=== PATIENT | male | born 1975 ===

== ENCOUNTER 2022-07-10 08:11 | Outpatient (REF) | payer OTHER, SELFPAY ==
--- NOTE | ~2022-07-10 | XR_ITS ---
EXAMINATION: XR foot LT 2V CLINICAL INFORMATION: Reason for Exam M72.2 - Plantar fascial fibromatosis COMPARISON: None. TECHNIQUE: AP, lateral, and oblique views of the left foot XR/XR foot LT 2V FINDINGS/IMPRESSION: * No acute fracture or dislocation. * Joint spaces are maintained without significant degenerative change. * Calcaneal enthesopathy.
[2022-07-10 09:23] LABS: Hematocrit 46.8 % (42.0-52.0); Hemoglobin 15.6 g/dl (14.0-18.0); Mean Corpuscular HGB Conc 33.3 g/dl (31.0-36.0); Mean Corpuscular Hemoglobin 28.2 pg (27.0-33.0); Mean Corpuscular Volume 84.6 fL (80.0-98.0); Mean Platelet Volume 10.1 fL (9.4-12.4); Platelet Count 272 X10*3/uL (160-400); Red Blood Count 5.53 X10*6/uL (4.60-5.80); Red Cell Distribution Width 13.3 % (11.0-16.0); White Blood Count 8.2 X10*3/uL (4.8-10.8)
[2022-07-10 10:00] LABS: Alanine Aminotransferase 31 U/L (0-40); Albumin Level 4.3 g/dL (3.5-5.0); Alkaline Phosphatase 103 U/L (39-117); Anion Gap 15 (12-20); Aspartate Amino Transferase 22 U/L (5-37); Bilirubin Total 0.7 mg/dL (0.0-1.0); Blood Urea Nitrogen 17 mg/dL (9-16); Calcium 9.5 mg/dL (8.4-10.2); Carbon Dioxide 26 mmol/L (22-29); Chloride 103 mmol/L (96-108); Cholesterol 182 mg/dL; Estimated Glomerular Filt Rate > 60; Glucose Fasting 101 mg/dL (60-99); HDL Cholesterol 45 mg/dL; LDL Cholesterol Calculated 97 mg/dl; Potassium 4.8 mmol/L (3.3-5.1); Sodium 139 mmol/L (135-145); Total Protein 7.5 g/dL (6.5-8.0); Triglycerides 204 mg/dL
[2022-07-10 10:09] LABS: TSH reflex Free T4 1.13 uIU/mL (0.32-4.0)
== END 2022-07-10 08:12 | disposition home or self-care (01) ==
LOC: HO.XRAY 08:11
PROVIDERS: PCP Physician Assistant; Visit Provider Physician Assistant
DX: Z13.29 Encounter for screening for other suspected endocrine disorder (principal); Z13.220 Encounter for screening for lipoid disorders; M72.2 Plantar fascial fibromatosis
CPT/HCPCS: 36415; 73620; 80053; 80061; 84443; 85027

== ENCOUNTER 2022-08-17 21:26 | Emergency (ER) | payer OTHER, SELFPAY ==
--- NOTE | ~2022-08-17 | XR_ITS ---
EXAMINATION: XR ANKLE, RIGHT. XR FOOT, RIGHT. CLINICAL INFORMATION: Injury, swelling COMPARISON: None TECHNIQUE: 3 views of the right ankle. 3 views of the right foot. FINDINGS: There is a chronic ossification at the tip of the medial malleolus. The ankle mortise is preserved. There is no acute fracture or dislocation. No radiopaque foreign body. XR/XR ankle RT 2V IMPRESSION: No acute fracture or dislocation of the right ankle or foot.
--- NOTE | ~2022-08-17 | XR_ITS ---
EXAMINATION: XR ANKLE, RIGHT. XR FOOT, RIGHT. CLINICAL INFORMATION: Injury, swelling COMPARISON: None TECHNIQUE: 3 views of the right ankle. 3 views of the right foot. FINDINGS: There is a chronic ossification at the tip of the medial malleolus. The ankle mortise is preserved. There is no acute fracture or dislocation. No radiopaque foreign body. XR/XR foot RT 2V IMPRESSION: No acute fracture or dislocation of the right ankle or foot.
[2022-08-17 21:33] VITALS: BP 145/88; PULSE 82; RESP 16; TEMP 36.5; O2SAT 96; BMI 23.3
--- NOTE | 2022-08-17 22:54 | ED_ITS ---
HPI - Extremity Injury (Lower) General Chief Complaint: Extremity Injury, Lower Stated Complaint: right foot pain Time Seen by Provider: 08/17/22 22:18 Source: patient Mode of arrival: ambulatory Limitations: no limitations History of Present Illness HPI Narrative: This is a 47-year-old male presenting to the emergency department complaints of right great toe pain and right foot pain status post injury while at a trampoline park. Patient tells me he went to go kick a ball and instead of taking the ball he kicked the ground. Since then he has been experiencing pain and swelling to the dorsal aspect of foot, he reports pain is worse to the right great toe. Patient tells me pain is worse with movement and ambulation better at rest. Patient rates the pain at 9.9/10. Tells me injury happened at around 07:30 at night. Patient denies numbness and tingling. No previous injuries to the right foot. This injury did not involve a fall with head strike, patient not reporting headache, vision changes, dizziness, patient not on blood thinners. GCS of 15 on arrival. NIH stroke scale 0. Related Data Previous Rx's Medication Instructions Recorded ibuprofen 800 mg tablet 800 mg PO Q8H PRN pain 15 days #45 07/09/22 tabs prednisone 20 mg tablet 20 mg PO DAILY 7 days #7 tabs 07/09/22 Allergies Allergy/AdvReac Type Severity Reaction Status Date / Time No Known Allergies Allergy Verified 08/17/22 21:33 Review of Systems Review of Systems: Constitutional : No Weight loss, No Fever, No Chills, No Fatigue, No Malaise ENT/Mouth : No sore throat, No Rhinorrhea Eyes: No Eye Pain, No Swelling, No Redness Cardiovascular : No Chest Pain, No SOB, No Dyspnea on Exertion, No Orthopnea, No Edema, No Palpitations Respiratory : No Cough, No Sputum, No Wheezing Gastrointestinal : No Nausea, No Vomiting, No Diarrhea, No Constipation, No abdominal Pain, No Hematochezia, No Melena Genitourinary : No Dysuria, No Urinary Frequency, No Hematuria, Musculoskeletal : + joint pain, No Myalgias, + Joint Swelling Skin : No Skin Lesions, No rash Neuro : No Weakness, No Numbness, No Dizziness, No Headache Psych : No Anxiety/Panic, No Depression All other systems reviewed and are negative Yes all other systems are reviewed and are negative PMFSH Past Medical History Attestation statement: The following information was validated with the patient. Source: old records reviewed and nursing notes reviewed Surgical History History of repair of anterior cruciate ligament of right knee Family History Family History Mother Hypertension Heart problem Father No problems noted. 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 Oriented X3.? No acute distress.? Head: Normocephalic, atraumatic, no step-offs or deformities Eyes: Pupils equal, round and reactive to light.? Extraocular movements intact a nd pain-free ENT: Pharynx normal.? Neck: Normal inspection.? Neck supple.? CVS: Normal heart rate and rhythm.? Pulses normal.? Respiratory: No respiratory distress.? Breath sounds normal.? Abdomen: Soft and nontender.? Skin: Skin warm and dry.? Normal skin color.? Normal skin turgor.? Extremities: No lower extremity edema.? No calf ttp. 5/5 strength to bilateral upper and lower extremities. Normal left foot. Right foot with swelling to the dorsal aspect of foot, small abrasion to the lateral aspect of right foot, pain with palpation overlying the 1st metatarsal. Full range of motion to bilateral toes, ankle, knees. 2+ dorsalis pedis, posterior tibialis and anterior tibialis pulses equal bilateral, marked with a skin marker. No footdrop bilateral. Normal sensation to bilateral lower extremities. Back: No midline tenderness, no C-spine tenderness, full range of motion, no CVA tenderness bilaterally Neuro: Oriented X 3.? No motor deficit.? No sensory deficit. CN 2-12 intact . Ambulating with steady gait however limping favoring his left side. Normal coordination. Normal [id number]. Negative Romberg. Course Reevaluation(s) Reevaluation #1: No acute fractures or dislocations noted on x-ray or ankle. This time patient will be discharged home with orthopedic follow-up. Advised return with any new or worsening symptoms educated on worrisome signs and symptoms and when to return. Patient verbalizes understanding. At this time comfortable discharge Time: 23:02 MDM - Extremity Injury (Lower) [facility] Narrative Medical decision making narrative: [id number] 47-year-old male presents with right foot pain status post jamming his foot into the ground. Physical exam significant for No lower extremity edema.? No calf ttp. 5/5 strength to bilateral upper and lower extremities. Normal left foot. Right foot with swelling to the dorsal aspect of foot, small abrasion to the lateral aspect of right foot, pain with palpation overlying the 1st metatarsal. Full range of motion to bilateral toes, ankle, knees. Concerns for possible fracture dislocation. Other differentials include sprain/strain. Unlikely acute ligament or tendon tear. Plan at this time imaging. Patient will be given Toradol for pain. Will be given a postop shoe as well as crutches. Medical Records Attestation: I reviewed the patient's medical records. Lab Data Attestation: I reviewed the patient's lab results. Critical Care Time Critical Care Time Critical Care Time: No Discharge Plan Discharge Patient Disposition: Home, Self-Care Additional Instructions: Take your medications as prescribed. If you were prescribed antibiotics today, it is important that you take your medication to their entirety, do not skip any doses, do not finish them early. Follow-up with your primary care provider this week. Follow up with orthopedics as needed Return to the emergency department with new or worsening symptoms. Such as fevers, chills, chest pain, shortness of breath, nausea, vomiting, dizziness, headache, vision changes, lethargy In case of emergency call 911 You can take ibuprofen every 6 hours, Tylenol every 4 hours as needed for pain or discomfort. Please use your crutches and postop shoe as instructed. Return with new or worsening symptoms such as severe swelling, severe pain, changes in quality in frequency of pain. Or any new or worsening symptoms. IMPRESSION: No acute fracture or dislocation of the right ankle or foot. Prescriptions: No Action prednisone 20 mg tablet 20 mg PO DAILY 7 Days Qty: 7 0RF ibuprofen 800 mg tablet 800 mg PO Q8H PRN (Reason: pain) 15 Days Qty: 45 1RF Referrals: [facility] [place] [facility] [Provider Group] - 1 week Physician,Unknown J [Primary Care Provider] - 2 days Stand Alone Forms: Work/School Release
[2022-08-17] MEDS: Ketorolac Tromethamine 15 MG/ML VIAL 30 MG IM (23:13)
== END 2022-08-17 23:23 | disposition home or self-care (01) ==
PROVIDERS: Emergency Provider Internal Medicine
DX: S93.601A Unspecified sprain of right foot, initial encounter (principal); M25.571 Pain in right ankle and joints of right foot; Y29.XXXA Contact with blunt object, undetermined intent, initial encounter; Y93.9 Activity, unspecified; Y92.9 Unspecified place or not applicable; Y99.9 Unspecified external cause status
CPT/HCPCS: 73600; 73620; 96372; 99283; 99284; J1885

== ENCOUNTER → 2022-09-18 07:20 | Outpatient (BNVA) | payer OTHER, SELFPAY | PROVIDERS: PCP Physician Assistant; Referring Provider Physician Assistant; Visit Provider Physician Assistant | DX: Z13.89 Encounter for screening for other disorder (principal) ==

== ENCOUNTER 2023-03-10 16:00 | Outpatient (RCR) | payer OTHER, SELFPAY ==
--- NOTE | 2023-02-26 18:27 | MHC.PT.EP ---
[facility] [place] Office [place] Office [place] Office [address] [phone] F: [phone] F: [phone] F: [phone] F: [phone] Physical Therapy Plan of Care Date of Evaluation: Date of Surgery: Diagnosis: plantar fascia fibromatosis (MD Dx) posterior tibilais tendonitis, plantar fasciitis (PT Dx) Assessment: Patient is a 47 y.o. who is referred to PT by Franck Rossi PA-C with Dx of plantar fascia fibromatosis. PT diagnosis is posterior tibilais tendonitis, plantar fasciitis. Patient impairments include pain, localized swelling, weakness, limited ROM, antalgic gait. Patient current functional limitations are stairs (tends to use one at a time with railings), prolonged standing, walking. Patient will benefit from skilled PT to address aforementioned impairments and functional limitations to meet established goals. Frequency and Duration: The patient will be seen 2x/week for 4 weeks Short Term Goals: 2 weeks Patient demonstrates consistency and independence with HEP to self manage symptoms. Building Superintendent Goals: 4 weeks Treatment Plan: Modalities to reduce pain, spasms and effusion. Manual therapy to restore motion and function. Therapeutic exercise to improve strength and flexibility. Neuromuscular re-education for posture and balance. Therapeutic activities to return to functional activities of daily living. Electronically signed by: Rajiv Nuñez, PT, DPT Please sign and return to therapist. Thank you for your referral.
--- NOTE | 2023-04-28 14:42 | MHC.PT.DC ---
[facility] [place] Office [place] Office [place] Office [address] Saw[address] 140 [facility] [phone] F: [phone] F: [phone] F: [phone] F: [phone] Physical Therapy Discharge Report Diagnosis: plantar fascia fibromatosis (MD Dx) posterior tibilais tendonitis, plantar fasciitis (PT Dx) Date of Surgery: Date of Evaluation: 02/26/23 Date of Discharge: 04/28/23 Treatments to Date: 3 Cancellations to Date: No Shows to Date: 3 Discharge Status: Visit Non-compliance Discharge Summary: He was seen for 3 sessions, has independent HEP. He ceased attending PT on his own accord as of 03/10/2023 and is therefore discharged from PT at this time. Electronically signed by: Rajiv Nuñez, PT, DPT Please sign and return to therapist. Thank you for your referral.
== END 2023-04-28 14:43 | disposition home or self-care (01) ==
LOC: HO.PT 16:00
PROVIDERS: PCP Physician Assistant; Visit Provider Physician Assistant
DX: M72.2 Plantar fascial fibromatosis (principal)
CPT/HCPCS: 97035; 97110; 97112; 97140; 97161

== ENCOUNTER 2023-06-04 11:05 | Outpatient (AMB) | payer OTHER, SELFPAY ==
[2023-06-04 11:13] VITALS: BP 126/66; PULSE 101; RESP 12; O2SAT 97; BMI 32.8
--- NOTE | 2023-06-04 11:13 | MHC.PC.OV ---
Vital Signs 06/04/23 11:13 Height 5 ft 5 in Weight 197 lb 4 oz BMI 32.8 BP 126/66 Blood Pressure Location Rt brachial Position Sitting Respiration 12 Pulse 101 H Pulse Source Pulse Oximeter Pulse Oximetry (%) 97 Oxygen Delivery Method Room Air Intake Visit Reasons: headaches Intake Note: Patient states that he has had an ongoing headache since this past Thursday. Patient states he has tried using acetaminophen. tylenol, aspirin. Patient states that the headache is making him feel nauseous as well as dizzy and light headed. [employer] French Teacher Required: Yes [employer] French Teacher Name: Khris([id number]) Accompanied by: Self / Same As Patient Allergies No Known Allergies Allergy (Verified 06/05/23 05:21) Medication List - Last Reconciled 06/05/23 by KARLI Ramirez sumatriptan succinate take 1 tab at onset of headache; if no relief may repeat 1 tab after at least 2 hrs; max = 4 tabs/24 hr PO Tobacco use date assessed: 07/09/22 Dental Screening Dental Screen Date: 06/04/23 Did you have a dental visit in the last 12 months?: Yes Did you have a dental problem in the last 6 months where you did not have access to dental care?: No Was dental information given to patient?: Patient has dentist HPI HPI Comments History of Present Illness Details Patient is a 47-year-old male here today for annual physical.? Patient is Bulgarian-speaking only thus we used a remote hourly sign language interpreter for this visit. Patient of Henry sosa seen in August 2022 presents today for Patient report ongoing headache since Thursday has tried OTC advil, ibuprofen and excedrine with minimal relief and then it returns. Patient states starts in the neck and runs up the back of head excruciating pain, constant. Patient states he does some associated nausea PFSH Medical History (Updated 06/04/23 @ 11:42 by KARLI Ramirez) No pertinent past medical history Surgical History History of repair of anterior cruciate ligament of right knee Family History Mother Hypertension Heart problem Father No problems noted. 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 Don Wing, Alethea Joseph, Willy Otto and colleagues, with an educational claude from [employer]. Review of Systems Const Denies chills, Denies fatigue, Denies fever(s), Reports headache(s) and Denies poor appetite Eyes Denies no additional complaints ENT Reports Normal hearing present and Reports headache(s) Card Denies chest pain, Denies syncope, Denies rapid heart rate and Denies dyspnea Resp Denies cough and Denies dyspnea GI Denies change in stool character, Denies constipation, Denies diarrhea, Denies nausea and Denies vomiting Denies dysuria, Denies urinary frequency and Denies urinary urgency Neuro Reports Normal hearing present, Denies confusion, Denies syncope and Reports headache(s) Psych Denies confusion Endo Denies fatigue Physical exam (Primary Care) Vital Signs: Last Vital Signs Pulse 101 H 06/04/23 11:13 Resp 12 06/04/23 11:13 BP 126/66 06/04/23 11:13 Pulse Ox 97 06/04/23 11:13 Oxygen Delivery Method Room Air 06/04/23 11:13 BMI result Body Mass Index 32.8 Tobacco/Smoking Status: Tobacco use Status Tobacco use date assessed 07/09/22 06/04/23 11:24 Patient Tobacco Use Status Never used Tobacco 06/04/23 11:24 Tobacco use type Cigarette 06/04/23 11:24 e-Cigarette/Vaping Use Never Used 06/04/23 11:24 Thrive Assessment: Date of Thrive Assessment Date Thrive assessed 07/09/22 06/04/23 11:24 Const General: No confusion Orientation/consciousness: No confusion HENMT Head: Yes normocephalic and Yes atraumatic Eyes Conjunctivae: conjunctivae normal Pupils: Equal, round and reactive pupils present EOM: EOMs intact bilaterally Chest Chest palpation & inspection: normal inspection of the chest Resp Effort & Inspection: normal respiratory effort Auscultation: clear to auscultation bilaterally, no crackles, no rhonchi and no wheezes Cardio Rate: regular rate Rhythm: regular rhythm Heart sounds: S1 normal heart sound present and S2 normal heart sound present GI Inspection: Yes normal to inspection Neuro General: No confusion Cranial nerves: Yes Equal, round and reactive pupils present and Yes Normal hearing present Extrem General: No edema Assessment and Plan Assessment & Plan (1) Migraine: Code(s): G43.909 - Migraine, unspecified, not intractable, without status migrainosus Plan: Will trial patient on sumatriptan for migraine headaches. Patient advised to call office no improvement. Patient requesting referral for cognos analyst for eye exam, referral entered. Plan Follow-up in 2 weeks. Orders: Referrals Ophthalmology Referral Z01.00 - Encounter for examination of eyes and vision without abnormal findings Medications: New sumatriptan succinate take 1 tab at onset of headache; if no relief may repeat 1 tab after at least 2 hrs; max = 4 tabs/24 hr PO 20 tabs 0RF G43.909 - Migraine, unspecified, not intractable, without status migrainosus Coding Level of Care Code Est Pt Level 3 (76030) Diagnoses Migraine G43.909
== END 2023-06-04 11:50 | disposition home or self-care (01) ==
PROVIDERS: PCP Physician Assistant; Visit Provider Nurse Practitioner Family
DX: G43.909 Migraine, unspecified, not intractable, without status migrainosus (principal)
CPT/HCPCS: 99213

== ENCOUNTER 2023-06-09 13:59 | Outpatient (AMB) | payer OTHER, SELFPAY ==
[2023-06-09 14:02] VITALS: BP 130/82; RESP 90; O2SAT 97; BMI 33.2
--- NOTE | 2023-06-09 14:02 | MHC.PC.OV ---
Vital Signs 06/09/23 14:02 Height 5 ft 5 in Weight 199 lb 6 oz BMI 33.2 BP 130/82 Blood Pressure Location Lt brachial Position Sitting Respiration 90 H Pulse Oximetry (%) 97 Oxygen Delivery Method Room Air Intake Visit Reasons: headaches Intake Note: Pt is here for ongoing occipital neuralgia/pressure migraine for more than a week. With two days with no sleep, nausea and vomiting for 1 week. 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 Pipe Bowls Paint Trimmer Language: Maltese Accompanied by: Allergies No Known Allergies Allergy (Verified 06/09/23 14:24) Medication List - Last Reconciled 06/09/23 by Franck Rossi PA-C aaxrbaasnu-jnxyvolqjtimv-tjmi 50-325-40 mg 1 tab PO Q6H PRN 4 days Tobacco use date assessed: 06/09/23 Dental Screening Dental Screen Date: 06/09/23 Did you have a dental visit in the last 12 months?: No Did you have a dental problem in the last 6 months where you did not have access to dental care?: No Was dental information given to patient?: Yes HPI headaches HPI Details Patient is a 48-year-old male here today for problem visit. Has been having head pain/ migraines to which he has taken sumatriptan, Fioricet and Excedrin which have not helpful to take away some of his head pain located in the posterior region. Reports the head originate at the base of his skull and radiates toward his eyes. REport he has been experiencing headache for 10 days. He does report a small head injury prior to his headaches onset though does not attribute this to his headaches. 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 He believes there might be an issue with his eyes and would like to see an eye doctor. [facility] Medical History (Updated 06/09/23 @ 14:39 by Franck Rossi PA-C) No pertinent past medical history Surgical History History of repair of anterior cruciate ligament of right knee Family History Mother Hypertension Heart problem Father No problems noted. 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 Don Wign, Alethea Joseph, Willy Otto and colleagues, with an educational claude from [employer]. Review of Systems Const Reports headache(s) Eyes Denies loss of vision ENT Denies vertigo, Denies dizziness, Reports headache(s) and Denies sore throat Card Denies chest pain, Denies leg edema and Denies lightheadedness Resp Denies cough, Denies hemoptysis and Denies wheezing GI Denies abdominal pain, Denies melena, Denies constipation, Denies diarrhea and Denies vomiting Denies dysuria, Denies urinary frequency and Denies urinary urgency Musc Denies arthralgias, Denies joint swelling, Denies numbness and Denies tingling Neuro Denies Abnormal speech present, Denies behavioral changes, Denies vertigo, Denies dizziness, Reports headache(s), Denies loss of vision, Denies memory loss, Denies numbness and Denies tingling Psych Denies anxiety, Denies behavioral changes, Denies depression, Denies memory loss and Denies panic attacks Mark/Lymph Denies easy bleeding and Denies easy bruising Aller/Immun Denies wheezing Physical exam (Primary Care) Vital Signs: Last Vital Signs Resp 90 H 06/09/23 14:02 BP 130/82 06/09/23 14:02 Pulse Ox 97 06/09/23 14:02 Oxygen Delivery Method Room Air 06/09/23 14:02 BMI result Body Mass Index 33.2 Tobacco/Smoking Status: Tobacco use Status Tobacco use date assessed 06/09/23 06/09/23 14:21 Patient Tobacco Use Status Never used Tobacco 06/09/23 14:02 Tobacco use type Cigarette 06/09/23 14:02 e-Cigarette/Vaping Use Never Used 06/09/23 14:02 Thrive Assessment: Date of Thrive Assessment Date Thrive assessed 07/09/22 06/09/23 14:02 Const General: healthy appearing, no acute distress, alert and awake Nutritional Appearance: well nourished Orientation/consciousness: oriented to person, oriented to place and oriented to time HENMT Ears: TM's normal bilaterally General nose exam: Normal nasal mucous membranes and turbinates present Eyes Conjunctivae: conjunctivae normal Sclerae: sclerae normal Pupils: Equal, round and reactive pupils present Neck Neck: Yes no lymphadenopathy and Yes no JVD Thyroid: Thyroid normal Carotids: no bruits Resp Effort & Inspection: normal respiratory effort and not tachypneic Auscultation: no crackles, no rales, no rhonchi and no wheezes Cardio Rate: regular rate Rhythm: regular rhythm Heart sounds: no murmurs and normal S1 and S2 GI Palpation (GI): Soft to palpation, nontender, no hepatomegaly and no splenomegaly Auscultation: normal bowel sounds Skin General skin exam: no rashes or lesions noted and dry skin Neuro General: oriented to person, oriented to place and oriented to time Cranial nerves: Yes Equal, round and reactive pupils present Speech: No Abnormal speech present Gait exam (Neuro): Normal gait present Motor exam (neuro): no tremor noted Extrem Right upper extremity: full ROM Left upper extremity: full ROM Right lower extremity: full ROM; no edema Left lower extremity: full ROM; no edema Psych Mental Status: mental status grossly normal Speech and movement: Normal speech and movement present Affect: normal affect Attitude: cooperative Thought process: Normal thought process present Assessment and Plan Assessment & Plan (1) Migraine: Code(s): G43.909 - Migraine, unspecified, not intractable, without status migrainosus Qualifiers: Migraine type: with aura Status migrainosus presence: with status migrainosus Intractability: not intractable Qualified Code(s): G43.101 - Migraine with aura, not intractable, with status migrainosus Plan: Patient's signs and symptoms most consistent with Occipital neuralgia, likely benefit from physical therapy on his cervical spine. Due to patient's reported minor head injury and signs symptoms of dizziness and nausea will send for CT of head to evaluate for any intracranial bleed. (2) Head injury: Code(s): S09.90XA - Unspecified injury of head, initial encounter Qualifiers: Encounter type: initial encounter Qualified Code(s): S09.90XA - Unspecified injury of head, initial encounter Plan: As per HPI patient does report a mild head injury while at work though was wearing protective helmet. HE Does not associate this with his current head pain. (3) Dizziness: Code(s): R42 - Dizziness and giddiness (4) Blurred vision, bilateral: Code(s): H53.8 - Other visual disturbances (5) Cervical (neck) region somatic dysfunction: Code(s): M99.01 - Segmental and somatic dysfunction of cervical region Plan: Symptoms seem to be region eating from his upper cervical spine. He would likely benefit from physical therapy to help loosen and stress cervical spine musculature. Orders: Orders CT head/brain w IV con Today G43.909 - Migraine, unspecified, not intractable, without status migrainosus, R42 - Dizziness and giddiness, S09.90XA - Unspecified injury of head, initial encounter Basic Metabolic Panel Today S09.90XA - Unspecified injury of head, initial encounter PT Evaluation and Treatment Today M99.01 - Segmental and somatic dysfunction of cervical region Referrals Neurology Referral G43.101 - Migraine with aura, not intractable, with status migrainosus Ophthalmology Referral H53.8 - Other visual disturbances Medications: New rizatriptan take 1 tab at onset of headache; if no relief may repeat 1 tab after at least 2 hrs; max = 3 tabs/24 hr PO 30 days 10 tabs 0RF G43.101 - Migraine with aura, not intractable, with status migrainosus famotidine 20 mg PO DAILY 30 days 30 tabs 1RF G43.101 - Migraine with aura, not intractable, with status migrainosus Discontinued psstgkcywc-uzvqmlrrhqjug-ukqg 50-325-40 mg Discontinued Reason: Doctor's Order 1 tab PO Q6H 4 days PRN 16 tabs 0RF pain G43.909 - Migraine, unspecified, not intractable, without status migrainosus Coding Level of Care Code Est Pt Level 4 (43764) Diagnoses Migraine with aura and with status migrainosus, not intractable G43.101 Migraine type: with aura Status migrainosus presence: with status migrainosus Intractability: not intractable Injury of head, initial encounter S09.90XA Encounter type: initial encounter Dizziness R42 Blurred vision, bilateral H53.8 Cervical (neck) region somatic dysfunction M99.01
== END 2023-06-09 15:42 | disposition home or self-care (01) ==
PROVIDERS: PCP Physician Assistant; Visit Provider Physician Assistant
DX: G43.101 Migraine with aura, not intractable, with status migrainosus (principal); S09.90XA Unspecified injury of head, initial encounter; R42 Dizziness and giddiness; H53.8 Other visual disturbances; M99.01 Segmental and somatic dysfunction of cervical region
CPT/HCPCS: 99214

== ENCOUNTER 2023-07-07 07:18 | Outpatient (REF) | payer OTHER, SELFPAY ==
--- NOTE | ~2023-07-07 | CT_ITS ---
EXAMINATION: CT HEAD WITHOUT CONTRAST CLINICAL INFORMATION: Dizziness and giddiness. COMPARISON: None available. TECHNIQUE: Contiguous axial imaging was performed from the skull base to vertex without intravenous administration of contrast. This CT examination was performed using dose optimization techniques as appropriate, variously including the following: *Automated exposure control *Adjustment of mA and/or kV according to patient size (this includes techniques or standardized protocols for targeted exams where dose is matched to indication/reason for exam; i.e. extremities or head) *Use of iterative reconstruction technique DLP: 716 mGy-cm FINDINGS: The lateral, third and the fourth ventricles are normally outlined. The cortical sulci and basal cisterns are normally outlined as well. There is no acute territorial defect, hemorrhage or midline shift. The extra-axial spaces are unremarkable. Calvarium: Intact. Maxillofacial sinuses and mastoids: Clear as visualized. CT/CT head/brain wo IV con IMPRESSION: No acute intracranial pathology.
== END 2023-07-07 07:19 | disposition home or self-care (01) ==
LOC: HO.CT 07:18
PROVIDERS: PCP Physician Assistant; Visit Provider Physician Assistant
DX: R42 Dizziness and giddiness (principal); S09.90XA Unspecified injury of head, initial encounter; H53.8 Other visual disturbances
CPT/HCPCS: 70450

== ENCOUNTER 2023-07-14 10:21 | Outpatient (AMB) | payer OTHER, SELFPAY ==
[2023-07-14 10:26] VITALS: BP 120/86; PULSE 80; RESP 17; O2SAT 98; BMI 32.9
--- NOTE | 2023-07-14 10:26 | MHC.PC.OV ---
Vital Signs 07/14/23 10:26 Height 5 ft 5 in Weight 198 lb BMI 32.9 BP 120/86 Blood Pressure Location Lt brachial Position Sitting Respiration 17 Pulse 80 Pulse Source Pulse Oximeter Pulse Oximetry (%) 98 Oxygen Delivery Method Room Air Intake Visit Reasons: Headaches Intake Note: Patient presents with a persistent migraine affecting the right side of the brain for a duration of one month. The intensity of the pain is so severe that it induces nausea, leading the patient to take two tablets of rizatriptan in an attempt to manage the pain. Pulley Mortiser Operator Required: Yes Pulley Mortiser Operator Language: Bulgarian Accompanied by: Self / Same As Patient Allergies No Known Allergies Allergy (Verified 07/14/23 10:42) Medication List - Last Reconciled 07/14/23 by Franck Rossi PA-C famotidine 20 mg PO DAILY 30 days rizatriptan take 1 tab at onset of headache; if no relief may repeat 1 tab after at least 2 hrs; max = 3 tabs/24 hr PO 30 days Tobacco use date assessed: 06/09/23 Dental Screening Dental Screen Date: 07/14/23 Did you have a dental visit in the last 12 months?: No Did you have a dental problem in the last 6 months where you did not have access to dental care?: No Was dental information given to patient?: Patient has dentist HPI Headaches HPI Details Patient is a 48-year-old male here today for follow-up visit. Has been suffering with daily headaches. The headaches seem to start in the back of his head and radiate into his temporal regions. Some concern here for occipital neuralgia thus was referred to physical therapy. Has upcoming visit with Neurology in September 2023. Has tried sumatriptan and Fioricet though felt these meds were ineffective. Has been trialing rizatriptan which is not helpful at [address]- ( 06/2023) without any intracranial pathology. [facility] Medical History (Updated 06/09/23 @ 14:39 by Franck Rossi PA-C) No pertinent past medical history Surgical History History of repair of anterior cruciate ligament of right knee Family History Mother Hypertension Heart problem Father No problems noted. 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 1. Little interest or pleasure in doing things: not at all 2. Feeling down, depressed, or hopeless: not at all 3. Trouble falling or staying asleep, or sleeping too much: not at all 4. Feeling tired or having little energy: not at all 5. Poor appetite or overeating: not at all 6. Feeling bad about yourself - or that you are a failure or have let yourself or your family down: not at all 7. Trouble concentrating on things, such as reading the newspaper or watching television: not at all 8. Moving or speaking so slowly that other people could have noticed. Or the opposite - being so fidgety or restless that you have been moving around a lot more than usual: not at all 9. Thoughts that you would be better off or of hurting yourself in some way: not at all Total score: 0 Depression Screening Interpretation: Negative Depression Screening Done: Yes 05177 - PHQ-9 Billing: Yes Source: Developed by Drs. Don Wing, Alethea Joseph, Willy Otto and colleagues, with an educational claude from [employer]. Thrive Questionnaire Date Thrive assessed: 07/14/23 I am a: Patient What is your living situation today?: I have a steady place to live Within the past 12 months, did the food you bought not last and you didn't have the money to get more?: Never true Within the past 12 months, did you worry whether your food would run out before you got money to buy more?: Never true Do you have trouble paying for medicines?: No Do you have trouble getting transportation to medical appointments?: No Do you have trouble paying your heating and electricity bill?: No Do you have trouble taking care of your child, family member or friend?: No Do you have trouble with day-to-day activities such as bathing, preparing meals, shopping, managing finances, etc.?: No Are you currently unemployed and looking for a job?: No Are you interested in more education?: No Please select the resources that you would like help with: None Currently or been in a relationship where the following occur: no concerns reported AUDIT C Alcohol Use Questionnaire (AUDIT-C) 1. How often do you have a drink containing alcohol?: Monthly or less 2. How many drinks containing alcohol do you have on a typical day when you are drinking?: 1 or 2 3. How often do you have six or more drinks on one occasion?: Never Total Score: 1 PADILLA-7 AMB Questionnaire PADILLA-7 Date PADILLA - 7 assessed: 07/14/23 Feeling nervous, anxious, or on edge: 0 = Not at all Not being able to stop or control worryin = Not at all Worrying too much about different things: 0 = Not at all Trouble relaxin = Not at all Being so restless that it is hard to sit still: 0 = Not at all Becoming easily annoyed or irritable: 0 = Not at all Feeling afraid as if something awful might happen: 0 = Not at all Total PADILLA-7 score (0-4 normal; 5-9 mild; 10-14 moderate; 15-21 severe): 0 Source: Developed by Drs. Don Wing, Alethea Joseph, Willy Otto and colleagues, with an educational claude from [employer]. PADILLA-7 Assessment Billing PADILLA-7 Assessment Tool: PADILLA-7 Assessment 40504 Review of Systems Const Reports headache(s) Eyes Denies loss of vision ENT Denies vertigo, Denies dizziness, Reports headache(s) and Denies sore throat Card Denies chest pain, Denies leg edema and Denies lightheadedness Resp Denies cough, Denies hemoptysis and Denies wheezing GI Denies abdominal pain, Denies melena, Denies constipation, Denies diarrhea and Denies vomiting Denies dysuria, Denies urinary frequency and Denies urinary urgency Musc Denies arthralgias, Denies joint swelling, Denies numbness and Denies tingling Neuro Denies Abnormal speech present, Denies behavioral changes, Denies vertigo, Denies dizziness, Reports headache(s), Denies loss of vision, Denies memory loss, Denies numbness and Denies tingling Psych Denies anxiety, Denies behavioral changes, Denies depression, Denies memory loss and Denies panic attacks Mark/Lymph Denies easy bleeding and Denies easy bruising Aller/Immun Denies wheezing Physical exam (Primary Care) Vital Signs: Last Vital Signs Pulse 80 07/14/23 10:26 Resp 17 07/14/23 10:26 BP 120/86 07/14/23 10:26 Pulse Ox 98 07/14/23 10:26 Oxygen Delivery Method Room Air 07/14/23 10:26 BMI result Body Mass Index 32.9 Tobacco/Smoking Status: Tobacco use Status Tobacco use date assessed 06/09/23 07/14/23 10:32 Patient Tobacco Use Status Never used Tobacco 07/14/23 10:32 Tobacco use type Cigarette 07/14/23 10:32 e-Cigarette/Vaping Use Never Used 07/14/23 10:32 PHQ-9: PHQ-9 Score PHQ-9: Total score 0 07/14/23 10:34 Depression Screening Interpretation: Negative Thrive Assessment: Date of Thrive Assessment Date Thrive assessed 07/14/23 07/14/23 10:32 Currently or been in a relationship where the following occur: no concerns reported Const General: healthy appearing, no acute distress, alert and awake Nutritional Appearance: well nourished Orientation/consciousness: oriented to person, oriented to place and oriented to time HENMT Ears: TM's normal bilaterally General nose exam: Normal nasal mucous membranes and turbinates present Eyes Conjunctivae: conjunctivae normal Sclerae: sclerae normal Pupils: Equal, round and reactive pupils present Neck Neck: Yes no lymphadenopathy and Yes no JVD Thyroid: Thyroid normal Carotids: no bruits Resp Effort & Inspection: normal respiratory effort and not tachypneic Auscultation: no crackles, no rales, no rhonchi and no wheezes Cardio Rate: regular rate Rhythm: regular rhythm Heart sounds: no murmurs and normal S1 and S2 GI Palpation (GI): Soft to palpation, nontender, no hepatomegaly and no splenomegaly Auscultation: normal bowel sounds Skin General skin exam: no rashes or lesions noted and dry skin Neuro General: oriented to person, oriented to place and oriented to time Cranial nerves: Yes Equal, round and reactive pupils present Speech: No Abnormal speech present Gait exam (Neuro): Normal gait present Motor exam (neuro): no tremor noted Extrem Right upper extremity: full ROM Left upper extremity: full ROM Right lower extremity: full ROM; no edema Left lower extremity: full ROM; no edema Psych Mental Status: mental status grossly normal Speech and movement: Normal speech and movement present Affect: normal affect Attitude: cooperative Thought process: Normal thought process present Assessment and Plan Assessment & Plan (1) Migraine: Code(s): G43.909 - Migraine, unspecified, not intractable, without status migrainosus Qualifiers: Migraine type: with aura Status migrainosus presence: with status migrainosus Intractability: not intractable Qualified Code(s): G43.101 - Migraine with aura, not intractable, with status migrainosus Plan: Patient continues to have a daily migraine. Did does report recent Triptan taking 2 tablets helps reduce his pain. Does have upcoming appointment with Neurology in September of 2023 CT of head without any intracranial pathology. Does report there is some upper neck and base of skull pain with radiation of pain in head. Likely benefit from physical therapy on his neck. For now will start magnesium and vitamin B2. Also will start propanolol for chronic migraine treatment. Will have patient back in 2 weeks to assess the effectiveness of medication Orders: Orders PT Evaluation and Treatment Today M99.01 - Segmental and somatic dysfunction of cervical region Medications: New magnesium oxide 250 mg PO DAILY 30 tabs 0RF 30 days G43.101 - Migraine with aura, not intractable, with status migrainosus riboflavin (vitamin B2) 50 mg PO DAILY 30 tabs 1RF 30 days G43.101 - Migraine with aura, not intractable, with status migrainosus propranolol 10 mg PO BID 60 tabs 1RF 30 days G43.101 - Migraine with aura, not intractable, with status migrainosus Refilled famotidine 20 mg PO DAILY 30 tabs 6RF 30 days G43.101 - Migraine with aura, not intractable, with status migrainosus Coding Level of Care Code Est Pt Level 3 (16480) Diagnoses Migraine with aura and with status migrainosus, not intractable G43.101 Migraine type: with aura Status migrainosus presence: with status migrainosus Intractability: not intractable Additional Codes PADILLA-7 Assessment Billing - PADILLA-7 Assessment Tool: PADILLA-7 Assessment [id number] ([id number])
== END 2023-07-14 11:01 | disposition home or self-care (01) ==
PROVIDERS: PCP Physician Assistant; Visit Provider Physician Assistant
DX: G43.101 Migraine with aura, not intractable, with status migrainosus (principal)
CPT/HCPCS: 99213

== ENCOUNTER 2023-08-25 07:55 | Outpatient (AMB) | payer OTHER, SELFPAY ==
--- NOTE | 2023-08-25 08:08 | A.OFFPC_ITS ---
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 Equipment Rental Associate Language: Kinyarwanda Accompanied by: Self / Same As Patient Allergies No Known Allergies Allergy (Verified 08/25/23 08:16) Medication List - Last Reconciled 08/25/23 by Franck Rossi PA-C famotidine 20 mg PO DAILY 30 days magnesium oxide 250 mg PO DAILY 30 days propranolol 10 mg PO BID 30 days riboflavin (vitamin B2) 50 mg PO DAILY 30 days rizatriptan take 1 tab at onset of headache; if no relief may repeat 1 tab after at least 2 hrs; max = 3 tabs/24 hr PO 30 days Tobacco use date assessed: 06/09/23 Dental Screening Dental Screen Date: 08/25/23 Did you have a dental visit in the last 12 months?: No Did you have a dental problem in the last 6 months where you did not have access to dental care?: No Was dental information given to patient?: Patient has dentist HPI Annual exam HPI Details Patient is a 48-year-old Kinyarwanda-speaking male here today for routine annual physical. Patient has a past medical history significant for migraine disorder, hyperlipidemia, plantar fasciitis. .. Migraines: Has been started on rizatriptan, propanolol for daily use to keep down on frequency of migraines, vitamin B2, magnesium. He reports the medications have been helpful. Has not been able to establish with a neurologist until September of 2023. .. Hypertriglyceridemia: Most recent fasting lipid panel showing mild hypertriglyceridemia. Has been working on lifestyle modifications. Unfortunately has not been able to be more physically active due to his continued right heel pain. .. Plantar fasciitis : Seeing a urban forester, has done PT without much help . He is interested in getting a cortisone injection though is awaiting insurance approval for this. Colon cancer screening: awaiting colonoscopy procedure through GI Vaccines: Up-to-date with COVID vaccine, recieved a Tdap in 2018 , needs flu vaccine and tetanus vaccine PFS Medical History No pertinent past medical history Surgical History History of repair of anterior cruciate ligament of right knee Family History Mother Hypertension Heart problem Father No problems noted. 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 Don Wing, Alethea Joseph, Willy Otto and colleagues, with an educational claude from [employer]. Review of Systems Const Denies body aches, Denies chills, Denies excessive sweating, Denies fatigue, Denies fever(s) and Denies headache(s) Eyes Denies blurry vision ENT Denies dysphagia, Denies vertigo, Denies dizziness, Denies headache(s), Denies hearing loss and Denies tinnitus Card Denies chest pain, Denies chest pain with activity, Denies syncope, Denies irregular heart rhythm and Denies dyspnea Resp Denies chest congestion, Denies cough, Denies hemoptysis, Denies dyspnea and Denies wheezing GI Denies abdominal pain, Denies melena, Denies hematochezia, Denies coffee ground emesis, Denies dysphagia, Denies diarrhea, Denies nausea and Denies vomiting Denies difficulty urinating, Denies dysuria, Denies urinary frequency, Denies urinary hesitancy and Denies urinary urgency Musc Denies arthralgias, Denies limited range of motion, Denies muscle cramps and Denies muscle weakness Skin/Breast Denies rash and Denies skin ulcer Neuro Denies Abnormal speech present, Denies confusion, Denies vertigo, Denies dizziness, Denies syncope, Denies headache(s), Denies memory loss and Denies seizure-like activity Psych Denies anxiety, Denies confusion, Denies depression, Denies memory loss, Denies panic attacks and Denies paranoia Endo Denies excessive sweating, Denies fatigue, Denies flushing, Denies polydipsia and Denies polyuria Aller/Immun Denies wheezing Physical exam (Primary Care) Vital Signs: Last Vital Signs Pulse 86 08/25/23 08:09 BP 122/90 H 08/25/23 08:09 Pulse Ox 96 08/25/23 08:09 Oxygen Delivery Method Room Air 08/25/23 08:09 BMI result Body Mass Index 33.1 BMI Assessment/Plan discussion: High Tobacco/Smoking Status: Tobacco use Status Tobacco use date assessed 06/09/23 08/25/23 08:10 Patient Tobacco Use Status Never used Tobacco 08/25/23 08:10 Tobacco use type Cigarette 08/25/23 08:10 e-Cigarette/Vaping Use Never Used 08/25/23 08:10 Thrive Assessment: Date of Thrive Assessment Date Thrive assessed 07/14/23 08/25/23 08:10 Const Other: Obese General: cooperative, comfortable, no acute distress, alert and awake; No confusion Orientation/consciousness: oriented to person, oriented to place, patient oriented x3 and No confusion HENMT Head: Yes normocephalic Ears: external ears normal and TM's normal bilaterally Face and sinus: No sinus tenderness Mouth: Normal oral and palatal mucosa present and tongue normal Teeth and gingiva: dentition normal and gingiva normal Throat: Yes posterior oropharynx normal, Yes tonsils normal and Yes uvula midline Eyes Conjunctivae: conjunctivae normal Sclerae: sclerae normal Pupils: Equal, round and reactive pupils present EOM: EOMs intact bilaterally Direct Ophthalmoscopy: No no photophobia Neck Neck: Yes no lymphadenopathy, No tender and Yes no JVD Thyroid: Thyroid normal Carotids: no bruits Chest Chest palpation & inspection: no tenderness Resp Effort & Inspection: normal respiratory effort, no audible wheezes, not labored and no stridor Auscultation: no crackles, no rales, no rhonchi and no wheezes Cardio Jugular venous distension: no JVD Rate: regular rate, not bradycardic and not tachycardic Rhythm: regular rhythm Bruits: no carotid bruits Peripheral pulses: Peripheral pulses 2+ throughout GI Inspection: Yes normal to inspection, No abdominal wall ecchymosis and No visible herniation Palpation (GI): Soft to palpation, nontender, no guarding, not rigid and No hepatosplenomegaly present Auscultation: normoactive bowel sounds General: Yes no CVA tenderness Back/Spine/Pelvis Back: no CVA tenderness and No back tenderness Cervical Spine: cervical ROM normal Thoracic/Lumbar Spine: thoracic and lumbar spine normal to inspection, straight leg raise negative bilaterally, No thoraco-lumbar ROM limited and No lumbar spinal tenderness Skin Lesions: no lesions Rashes: no rashes Wounds: no wounds Neuro General: oriented to person, oriented to place, patient oriented x3, CN's II-XI intact bilaterally and No confusion Cranial nerves: Yes Equal, round and reactive pupils present and Yes Normal accommodation reflex present Cognition (Neuro): normal cognition Speech: No Abnormal speech present Gait exam (Neuro): Normal gait present Motor exam (neuro): 5/5 motor strength present throughout Extrem Right upper extremity: full ROM; no cyanosis Left upper extremity: full ROM; no cyanosis Right lower extremity: no edema Left lower extremity: no edema Psych Appearance: grossly normal Mental Status: mental status grossly normal Affect: normal affect Attitude: cooperative Thought process: Normal thought process present Assessment and Plan Assessment & Plan (1) Annual physical exam: Code(s): Z00.00 - Encounter for general adult medical examination without abnormal findings (2) Hypertriglyceridemia: Code(s): E78.1 - Pure hyperglyceridemia Plan: Patient has a history of mild hypertriglyceridemia. Advised to work on low closer I diet and try to be more physically active. At this point does not need medication. (3) Migraine: Code(s): G43.909 - Migraine, unspecified, not intractable, without status migrainosus Qualifiers: Intractability: not intractable Migraine type: with aura Status migrainosus presence: with status migrainosus Qualified Code(s): G43.101 - Migraine with aura, not intractable, with status migrainosus Plan: Patient continues to suffer with migraines though at a lesser degree. Has been started on beta-eleno, rizatriptan and vitamins to help him with his daily migraines. He does have a coming appointment with Neurology (4) GERD (gastroesophageal reflux disease): Comment: reflux precautions- omeprazole 20 mg QD Code(s): K21.9 - Gastro-esophageal reflux disease without esophagitis Qualifiers: Esophagitis presence: without esophagitis Qualified Code(s): K21.9 - Gastro-esophageal reflux disease without esophagitis Plan: Patient does use H2 eleno with good effect on reducing his GERD like symptoms. Advised on dietary modifications to reduce his GERD symptoms (5) Plantar fascia syndrome: Code(s): M72.2 - Plantar fascial fibromatosis Plan: Patient does continue to have right heel pain. Has followed up with a urban forester whom recommended physical therapy. Has done physical therapy though has not made much difference in his right heel pain. This limits him from being more physically active. He will follow-up with Podiatry regards to getting a cortisone injection in the right heel. (6) Obese: Code(s): E66.9 - Obesity, unspecified Qualifiers: Obesity type: due to excess calories Obesity classification: adult class 1 (BMI 30 - 34.9) Serious obesity comorbidity presence: without serious comorbidity Body mass index: BMI 33.0-33.9 Qualified Code(s): E66.09 - Other obesity due to excess calories; Z68.33 - Body mass index [BMI] 33.0-33.9, adult Plan: He does understand his BMI is over 30 will work on trying to be more physically active and adapting to better eating habits to reduce his weight Orders: Orders Lipid Panel Today E78.1 - Pure hyperglyceridemia Comprehensive [facility]. Panel Fast Today E78.1 - Pure hyperglyceridemia Prostate Specific Antigen Scr Today E78.1 - Pure hyperglyceridemia, Z12.5 - Encounter for screening for malignant neoplasm of prostate Medications: Refilled riboflavin (vitamin B2) 50 mg PO DAILY 30 days 30 tabs 6RF G43.101 - Migraine with aura, not intractable, with status migrainosus famotidine 20 mg PO DAILY 30 days 30 tabs 6RF G43.101 - Migraine with aura, not intractable, with status migrainosus magnesium oxide 250 mg PO DAILY 30 days 30 tabs 6RF G43.101 - Migraine with aura, not intractable, with status migrainosus propranolol 10 mg PO BID 30 days 60 tabs 6RF G43.101 - Migraine with aura, not intractable, with status migrainosus Coding Level of Care Code Est Pt Prev Care 40-64y(47411) Diagnoses Annual physical exam Z00.00 Hypertriglyceridemia E78.1 Migraine with aura and with status migrainosus, not intractable G43.101 Intractability: not intractable Migraine type: with aura Status migrainosus presence: with status migrainosus Gastroesophageal reflux disease without esophagitis K21.9 Esophagitis presence: without esophagitis Plantar fascia syndrome M72.2 Class 1 obesity due to excess calories without serious comorbidity with body mass index (BMI) of 33.0 to 33.9 in adult E66.09; Z68.33 Obesity type: due to excess calories Obesity classification: adult class 1 (BMI 30 - 34.9) Serious obesity comorbidity presence: without serious comorbidity Body mass index: BMI 33.0-33.9
[2023-08-25 08:09] VITALS: BP 122/90; PULSE 86; O2SAT 96; BMI 33.1
== END 2023-08-25 08:41 | disposition home or self-care (01) ==
PROVIDERS: PCP Physician Assistant; Visit Provider Physician Assistant
DX: Z00.00 Encounter for general adult medical examination without abnormal findings (principal); E78.1 Pure hyperglyceridemia; G43.101 Migraine with aura, not intractable, with status migrainosus; K21.9 Gastro-esophageal reflux disease without esophagitis; M72.2 Plantar fascial fibromatosis; E66.09 Other obesity due to excess calories; Z68.33 Body mass index [BMI] 33.0-33.9, adult
CPT/HCPCS: 99396

== ENCOUNTER 2023-09-23 08:29 | Outpatient (AMB) | payer OTHER, SELFPAY ==
[2023-09-23 08:35] VITALS: BP 124/84; PULSE 85; O2SAT 96; BMI 32.8
--- NOTE | 2023-09-23 08:35 | A.OFFVIS_ITS ---
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 I have been dealing with migraines since i was a young kid, I get a headache everyday. Allergies No Known Allergies Allergy (Verified 09/23/23 08:39) Medication List - Last Reconciled 09/23/23 by KARLI Lara bisacodyl (Dulcolax (bisacodyl)) 20 mg (4 x 5 mg) PO ONCE 1 day famotidine 20 mg PO DAILY 30 days magnesium oxide 250 mg PO DAILY 30 days omeprazole 20 mg PO DAILY polyethylene glycol 3350 (Miralax) 238 grams PO ONCE 1 day propranolol 10 mg PO BID 30 days riboflavin (vitamin B2) 50 mg PO DAILY 30 days rizatriptan take 1 tab at onset of headache; if no relief may repeat 1 tab after at least 2 hrs; max = 3 tabs/24 hr PO 30 days HPI HPI Comments History of Present Illness Details Right-handed 48-yr-old male presents for new pt evaluation of headache disorder. Pt reports he developed migraine at age 13 w/o known cause. Since he has always had migraines which responded to OTC analgesics, but more recently he is having more frequent and bothersome migraines. He has never seen neurology before. Yesterday, he had a new left sided electrical pain from the occipital region into the left eye- was severe and lasted just a minute or so. Headache questionnaire: Previous work-up? None Typical headache characteristics: Prodrome symptoms? None Aura? Denies Location, quality, characteristics? Left sided pressure, pulsating. Pain intensity? Severe Associated symptoms? Photophobia, nausea, dizziness, activity intolerance Focal weakness, Parethesias, Autonomic s/s? left eye watery Postdrome? None Triggers? light, sleepy too much Any positional, valsalva, exertional, sexual activity triggers? Exercise and sexual activity can cause a different bilateral pressure headache, which lasts 1-2 hrs after taking Excedrin Time of day? Once he is up and about doing more things Duration and Frequency? the left sided and bilateral headaches are constant w/ varying frequency How does headache impact your life? 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 Current acute medication use/interventions: Excedrin 1 tab most days, Rizatriptan- when severe, tolerates well, can help but does not have enough. Previous acute medication use: He tried caffeine type tx in [place]. Current preventative medication use: Propranolol 10mg bid and Riboflavin 50mg- recently started Previous preventative medication use: None Non-pharmacological interventions: Rest Other history of headache disorder? None History of musculoskeletal disorders or injury? None History of concussion/head injury? None History of mood disorder? None History of sleep disorder? None History of respiratory disease? None History of CV disease? None History of coagulopathy? None History of endocrine or metabolic disease? None History of seizure? None History of GI disorder? None Family history of migraine or other headache disorder? His sister and his dtr (in her 20s). [facility] Medical History No pertinent past medical history Surgical History History of repair of anterior cruciate ligament of right knee Family History Mother Hypertension Heart problem Father No problems noted. 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 Head: Yes normocephalic Resp Effort & Inspection: normal respiratory effort and able to speak in complete sentences Neuro Other: Photophobic General: patient oriented x3 Cranial nerves: Yes CN's II-XII intact bilaterally Cognition (Neuro): normal cognition Gait exam (Neuro): Normal gait present Motor exam (neuro): 5/5 motor strength present throughout Deep tendon reflexes (DTR's): Right triceps reflex intensity grade: 2+, Left triceps reflex intensity grade: 2+, Rt Biceps (C5, C6): 2+, Left biceps reflex intensity grade: 2+, Right brachioradialis reflex intensity grade: 2+, Left brachioradialis reflex intensity grade: 2+, Right patellar reflex intensity grade: 2+ and Left patellar reflex intensity grade: 2+ Coordination: [id number] test normal, tandem gait normal and Romberg test negative Pupils: Normal pupillary reactivity/response: bilateral Psych Appearance: grossly normal Mental Status: mental status grossly normal Speech and movement: Normal speech and movement present Affect: normal affect Attitude: cooperative Thought process: Normal thought process present Assessment & Plan Assessment & Plan (1) Worsening headaches: Code(s): R51.9 - Headache, unspecified (2) Exertional headache: Code(s): G44.84 - Primary exertional headache (3) Photophobia: Code(s): H53.149 - Visual discomfort, unspecified (4) Chronic migraine without aura: Code(s): G43.709 - Chronic migraine without aura, not intractable, without status migrainosus Plan Pt advised to undergo brain MRI w/wo to assess for secondary etiologies of worsening and exertional headaches. For overall headache management: Discussed importance of good self-care, including but not limited to maintaining a healthy diet, adequate fluid intake, adequate sleep, and engaging in regular physical activity. For headache triggers: Track headaches Light sensitivity tips: Patient may try blue light filtering glasses, green glasses, green light therapy.. Avoid wearing sunglasses inside- but do wear upon exiting work and going outside For acute headache treatment: Discussed importance of taking acute medications at the first sign of headache, however stressed importance of avoiding acute medication overuse (especially with combined headache medications). Continue Rizatriptan prn. Reduce Excedrin use. Previous acute migraine medication trials: None other Acute migraine medication contraindications: None For headache prevention medication: Discussed that preventative medications should be taken routinely as prescribed for best effect, it may take several weeks for full effect to take effect. Start Riboflavin 400mg qam Start Magnesium 400mg qhs Increase Propranolol from 10mg IR bid to 60mg ER cap qhs Reviewed potential adverse effects of betablockers, including but not limited to fatigue, hypotension, slow heart rate, mood changes, respiratory changes. Previous migraine prevention medication trials: None other Migraine prevention medication contraindications: None at this time Pt to follow-up in 2 months or sooner prn. Orders: Orders MR head/brain wo/w con Today G44.84 - Primary exertional headache, H53.149 - Visual discomfort, unspecified, R51.9 - Headache, unspecified Medications: New propranolol ER 60 mg PO BEDTIME 30 days 30 caps 3RF magnesium oxide may hold for loose stools 400 mg PO BEDTIME 30 days 30 tabs 6RF riboflavin (vitamin B2) 400 mg PO DAILY 30 days 30 tabs 6RF Changed From rizatriptan take 1 tab at onset of headache; if no relief may repeat 1 tab after at least 2 hrs; max = 3 tabs/24 hr PO 30 days 10 tabs 3RF G43.101 - Migraine with aura, not intractable, with status migrainosus To rizatriptan take 1 tab at onset of headache; if no relief may repeat 1 tab after at least 2 hrs; max = 3 tabs/24 hr PO 21 days 12 tabs 3RF G43.101 - Stephane stiven with aura, not intractable, with status migrainosus Discontinued riboflavin (vitamin B2) Discontinued Reason: Doctor's Order 50 mg PO DAILY 30 days 30 tabs 6RF G43.101 - Migraine with aura, not intractable, with status migrainosus magnesium oxide Discontinued Reason: Doctor's Order 250 mg PO DAILY 30 days 30 tabs 6RF G43.101 - Migraine with aura, not intractable, with status migrainosus propranolol Discontinued Reason: Doctor's Order 10 mg PO BID 30 days 60 tabs 6RF G43.101 - Migraine with aura, not intractable, with status migrainosus Coding Level of Care Code New Pt Level 4 (44762) Diagnoses Worsening headaches R51.9 Exertional headache G44.84 Photophobia H53.149 Chronic migraine without aura G43.709
== END 2023-09-23 09:55 | disposition home or self-care (01) ==
PROVIDERS: PCP Physician Assistant; Visit Provider Nurse Practitioner Family
DX: R51.9 Headache, unspecified (principal); G44.84 Primary exertional headache; H53.149 Visual discomfort, unspecified; G43.709 Chronic migraine without aura, not intractable, without status migrainosus
CPT/HCPCS: 99204

== ENCOUNTER → 2023-09-23 08:29 | Outpatient (BNVA) | payer OTHER, SELFPAY | PROVIDERS: PCP Physician Assistant; Visit Provider Nurse Practitioner Family ==

== ENCOUNTER 2023-11-20 07:23 | Outpatient (AMB) | payer OTHER, SELFPAY ==
--- NOTE | 2023-11-20 07:44 | MHC.OFFVIS ---
Intake Vital Signs 11/20/23 07:47 Height 5 ft 5 in Weight 197 lb BMI 32.8 Pulse 78 Pulse Source Pulse Oximeter Pulse Oximetry (%) 98 Oxygen Delivery Method Room Air Intake Visit Reasons: 8 wks f/u-CONF Intake Note: Patient presents for 8 week follow up. the headaches have decreased but when I go to bed without a headache but wake up with a headache Allergies No Known Allergies Allergy (Verified 11/20/23 07:47) Medication List - Last Reconciled 11/20/23 by KARLI Lara bisacodyl (Dulcolax (bisacodyl)) 20 mg (4 x 5 mg) PO ONCE 1 day famotidine 20 mg PO DAILY 30 days magnesium oxide 400 mg PO BEDTIME 30 days omeprazole 20 mg PO DAILY polyethylene glycol 3350 (Miralax) 238 grams PO ONCE 1 day propranolol ER 60 mg PO BEDTIME 30 days riboflavin (vitamin B2) 400 mg PO DAILY 30 days rizatriptan take 1 tab at onset of headache; if no relief may repeat 1 tab after at least 2 hrs; max = 3 tabs/24 hr PO 21 days HPI HPI Comments History of Present Illness Details 48-yr-old male presents for f/u visit. Pt denies any significant interval medical changes. Pt reports he is doing better since starting Mag and B2. However he is still waking up with headaches. He believes this is d/t bruxism- his mouth guard is broken and being replaced. He still have exertional headaches. He endorses snoring. He states he wakes up refreshed and denies day time sleepiness. Rizatriptan is helpful. MRI- was denied by insurance. Baseline headache characteristics: Severe, Left sided pressure, pulsating, a/w photophobia, nausea, dizziness, activity intolerance, left eye watery PFSH Medical History Hypertriglyceridemia Migraine GERD (gastroesophageal reflux disease) Surgical History History of appendectomy History of repair of anterior cruciate ligament of right knee Family History Mother Hypertension Heart problem Father No problems noted. 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 - [employer] Current occupational exposures/hazards: No Cognitive needs: No Hearing needs: No Vision needs: No Physical Exam Vital Signs: Last Vital Signs Pulse 78 11/20/23 07:47 Pulse Ox 98 11/20/23 07:47 Oxygen Delivery Method Room Air 11/20/23 07:47 BMI result Body Mass Index 32.8 Const General: cooperative and no acute distress Orientation/consciousness: patient oriented x3 Resp Effort & Inspection: normal respiratory effort and able to speak in complete sentences Neuro General: patient oriented x3 Cranial nerves: Yes CN's II-XII intact bilaterally Cognition (Neuro): normal cognition Psych Appearance: grossly normal Mental Status: mental status grossly normal Speech and movement: Normal speech and movement present Affect: normal affect Attitude: cooperative Assessment & Plan Assessment & Plan (1) Exertional headache: Code(s): G44.84 - Primary exertional headache (2) Chronic migraine without aura: Code(s): G43.709 - Chronic migraine without aura, not intractable, without status migrainosus (3) Bruxism: Code(s): F45.8 - Other somatoform disorders Plan Pt again advised to undergo brain MRI w/wo to assess for secondary etiologies of exertional headaches. 07/07/2023 CT/CT head/brain wo IV con: No acute intracranial pathology. For overall headache management: Continue to optimize good self-care, including but not limited to maintaining a healthy diet, adequate fluid intake, adequate sleep, and engaging in regular physical activity. For headache triggers: Track headaches Light sensitivity tips: Patient may try blue light filtering glasses, green glasses, green light therapy.. Avoid wearing sunglasses inside- but do wear upon exiting work and going outside For bruxism: Trial Cyclobenzaprine 5-10mg qhs. Resume using mouth guard. For acute headache treatment: Discussed importance of taking acute medications at the first sign of headache. Continue Rizatriptan prn. Reduce Excedrin use. Previous acute migraine medication trials: None other Acute migraine medication contraindications: None For headache prevention medication: Continue Riboflavin 400mg qam Continue Magnesium 400mg qhs Continue Propranolol 60mg ER cap qhs Previous migraine prevention medication trials: None other Migraine prevention medication contraindications: None at this time Pt to follow-up in 4 months or sooner prn. Medications: New cyclobenzaprine 5 - 10 mg (1 - 2 x 5 mg) PO BEDTIME PRN 60 tabs 3RF bruxism 30 days Coding Level of Care Code Est Pt Level 4 (35314) Diagnoses Exertional headache G44.84 Chronic migraine without aura G43.709 Bruxism F45.8
[2023-11-20 07:47] VITALS: PULSE 78; O2SAT 98; BMI 32.8
== END 2023-11-20 08:15 | disposition home or self-care (01) ==
PROVIDERS: PCP Physician Assistant; Visit Provider Nurse Practitioner Family
DX: G44.84 Primary exertional headache (principal); G43.709 Chronic migraine without aura, not intractable, without status migrainosus; F45.8 Other somatoform disorders
CPT/HCPCS: 99214

== ENCOUNTER → 2023-11-20 07:23 | Outpatient (BNVA) | payer OTHER, SELFPAY | PROVIDERS: PCP Physician Assistant; Visit Provider Nurse Practitioner Family ==

== ENCOUNTER 2023-12-10 08:36 | Day surgery (SDC) | payer OTHER, SELFPAY ==
[2023-12-08 10:47] VITALS: BMI 33.1
[2023-12-10 09:36] VITALS: BMI 32.8
--- NOTE | 2023-12-10 09:41 | P.CONAN_ITS ---
HPI - Anesthesia Eval Consult details Narrative: 48 yo male patient for EGD, Colonoscopy [facility] Active Problems Active Problems: All Active Problems (Updated 12/10/23 @ 09:42 by Lima Mello MD) Chronic migraine without aura (Acute) Photophobia (Acute) Exertional headache (Acute) Worsening headaches (Acute) Obese (Acute)- BMI 32.8 Cervical (neck) region somatic dysfunction (Acute) Blurred vision, bilateral with migraines Dizziness (Acute) with migraines Head injury (Acute) Colon cancer screening (Acute) GERD (gastroesophageal reflux disease) (Acute) Dermatitis (Acute) Hypertriglyceridemia (Acute) Plantar fascia syndrome left foot Past Medical History Medical History Hypertriglyceridemia Migraine GERD (gastroesophageal reflux disease) Family History Family History Mother Hypertension Heart problem Father No problems noted. 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 [employer] Current occupational exposures/hazards: No Cognitive needs: No Hearing needs: No Vision needs: No Meds Allergies Allergy/AdvReac Type Severity Reaction Status Date / Time No Known Allergies Allergy Verified 11/20/23 07:47 Exam Height,Weight and Vital Signs: Height 5 ft 5 in Weight 89.414 kg Vital Signs Temp Pulse Resp BP Pulse Ox O2 Del Method 12/10/23 09:58 97.6 F 67 16 134/94 H 97 Room Air Airway Mallampati Class: II TM Dist: >3cm Neck ROM: Full Loose/Missing/Broken Teeth: No (Denies broken, loose, missing teeth) Heart: RRR Lungs: CTAB Assessment and Plan Assessment Anesthesia Assessment: Anesthesia Plan Discussed and Chart Reviewed Final Anesthetic Review Family History of Problems with Anesthesia: No History of Problems with Anesthesia: No NPO: Yes ASA Class: II Final Preanesthetic Review: No Changes in Pt Med Stat, Meds/Allgs Chart Reviewed, Consent Obtained/Reviewed and Anes Risks/Benef Reviewed Patient Risk: Low Procedure Risk: Low Assessment/Block/Sedation in SS: Assess/Block/Sedation-SS Anesthetic Plan Anesthetic Plan: MAC: and TIVA Disposition: Standard PACU
[2023-12-10 09:58] VITALS: BP 134/94; PULSE 67; RESP 16; TEMP 36.4; O2SAT 97
[2023-12-10] MEDS: Lactated Ringers 1,000 ML 80 ML IVCONT (10:06)
--- NOTE | 2023-12-10 10:50 | P.HPSUR_ITS ---
Pre-Procedural Eval Section A - 24 Hr Update-Section A only Date of Service: 12/10/23 Section B - Complete if H&P > 30 days Chief Complaint: gerd,screening Relevant Family History (Specify if Yes): No Relevant Social History: Other (specify) (THC use) Present Medications: see Short Stay Collaborative assessment Medical History: Significant History ( Hypertriglyceridemia Migraine GERD (gastroesophageal reflux disease)) History of Previous Operations: Relevant previous surgery/procedure and date(s) ( History of appendectomy History of repair of anterior cruciate ligament of ri ght knee) Allergies: Allergies Allergy/AdvReac Type Severity Reaction Status Date / Time No Known Allergies Allergy Verified 11/20/23 07:47 Review of Systems Sugical H&P ROS: Negative: Constitution, Cardiovascular, Respiratory, Neurological, Psychiatric, Hem-Onc, Allergic/Immunologic, Gastrointestinal, Genitourinary, Musculoskeletal, Integumentary, Endocrine and Eyes/Ears/Nose/Throat Exam Surgical H&P Exam: Normal: HEENT, Normal: Heart, Normal: Lungs, Normal: Extremities, Normal: Abdomen, Normal: Skin and Normal: Neurological Plan Diagnosis/Plan: Unchanged I have reviewed the history and physical and performed a pertinent physical examination on my patient. No changes have occurred unless specified. Time Spent With Patient Time: Total time managing care of this patient today ____ minutes.
--- NOTE | 2023-12-10 11:18 | P.OP_ITS ---
Operative Note Operative Note Date of Service: 12/10/23 Narrative: Operative Information Procedure Description: EGD, Colonoscopy Indication: GERD, screening Anesthesia: MAC FLEXIBLE TRANSORAL UPPER GASTROINTESTINAL ENDOSCOPY AND COLONOSCOPY PROCEDURE NOTE UPPER ENDOSCOPY Consent: Indications for the procedure and potential complications of bleeding, perforation, reaction to medications and missed diagnosis were discussed with the patient and informed consent was obtained. Instrument: Olympus GIF H 190 J mid size upper endoscope Monitoring: Vital signs and clinical assessment, continuous EKG monitoring, Pulse oximetry, Carbon Dioxide monitoring and blood pressure monitoring were done throughout the procedure. Procedure: The patient was placed in the left lateral decubitis position and pre-procedure medications were administered and a bite block was placed. The endoscope was inserted into the mouth and advanced under direct vision to the third part of duodenum. A careful inspection was made as the upper endoscope was withdrawn including a retroflexed examination of the proximal stomach; Findings and interventions are described below. Findings: Larynx:normal Esophagus: GE junction at 37 cm, diaphragm hiatus at 37 cm, mild esophagitis at GEJ, bx taken from GEJ, and distal esophagus Stomach: Patchy erythema with few small erosions. Biopsies were obtained. Grade 2 flap valve on retroflexed examination of the cardia. Duodenum: Normal bulb and descending duodenum, Intervention: Biopsies as noted above, COLONOSCOPY Instrument: Olympus variable stiffness pediatric scope 190L Colonoscopy Monitoring: Vital signs and clinical assessment, continuous EKG monitoring, Pulse oximetry, Carbon Dioxide monitoring and blood pressure monitoring were done throughout the procedure. Colon withdrawal time was 11 minutes. Procedure: The patient was placed in the left lateral decubitis position and pre-procedure medications were administered. After a digital rectal examination of the ano-rectum, the video colonoscope was inserted into the rectum and advanced through the colon to the cecum/TI. The colonoscope was slowly withdrawn in a retrograde panoramic fashion and the colon mucosa was carefully examined including a retroflexed view of the rectum. Findings and interventions are described below. Procedure Difficulty:moderate Findings: Terminal Ileum-normal Cecum: 4-5 mm sessile polyp removed with cold forceps Ascending Colon: normal Transverse Colon -normal Descending Colon:normal Sigmoid Colon: normal Rectum: Retroflexion with small internal hemorrhoids, grade I Anorectum - normal Colon preparation: [place] Bowel Preparation Scale Right colon; 2 Transverse colon: 2 Left colon; 2 (0 = Unprepared colon segment with mucosa not seen due to solid stool that cannot be cleared. 1 = Portion of mucosa of the colon segment seen, but other areas of the colon segment not well seen due to staining, residual stool and/or opaque liquid. 2 = Minor amount of residual staining, small fragments of stool and/or opaque liquid, but mucosa of colon segment seen well. 3 = Entire mucosa of colon segment seen well with no residual staining, small fragments of stool or opaque liquid) Impression and Post Procedure Diagnosis: Endoscopy Findings: gastritis mild esophagitis Colonoscopy Findings: colon polyp internal hemorrhoids Plan: Await Pathology results Repeat Colonoscopy in 5-7 years if adenomatous polyp, 10 yrs if non adenomatous or earlier if clinically indicated High fiber diet leaflet avoid straining at stool, epsom salts and sitz bath, anusol supps or cream if H pylori pos then treat check nsadi hx Above findings were reviewed with the patient and relevant handouts were provided if indicated.
[2023-12-10 11:45] VITALS: BP 109/70; PULSE 74; RESP 16; TEMP 36.8; O2SAT 94
[2023-12-10 12:00] VITALS: BP 127/87; PULSE 78; RESP 18; TEMP 36.6; O2SAT 97
== END 2023-12-10 12:25 | disposition home or self-care (01) ==
PROVIDERS: Visit Provider Internal Medicine Gastroenterology
PROC: (CPT 45380; principal; 2023-12-10 13:00)
DX: Z12.11 Encounter for screening for malignant neoplasm of colon (principal); D12.0 Benign neoplasm of cecum; K64.0 First degree hemorrhoids; K21.9 Gastro-esophageal reflux disease without esophagitis; K29.50 Unspecified chronic gastritis without bleeding; B96.81 Helicobacter pylori [H. pylori] as the cause of diseases classified elsewhere; K20.90 Esophagitis, unspecified without bleeding; K44.9 Diaphragmatic hernia without obstruction or gangrene; E78.1 Pure hyperglyceridemia; G43.909 Migraine, unspecified, not intractable, without status migrainosus; Z79.1 Long term (current) use of non-steroidal anti-inflammatories (NSAID); Z79.899 Other long term (current) drug therapy; Z98.890 Other specified postprocedural states
CPT/HCPCS: 45380; 43239; 88305; 88313; 88342; J2250; J2704; J3010

== ENCOUNTER → 2023-12-10 08:36 | Outpatient (BNV) | payer OTHER, SELFPAY | PROVIDERS: Visit Provider Internal Medicine Gastroenterology | DX: Z12.11 Encounter for screening for malignant neoplasm of colon (principal); K63.5 Polyp of colon; K64.0 First degree hemorrhoids; K21.00 Gastro-esophageal reflux disease with esophagitis, without bleeding; K29.70 Gastritis, unspecified, without bleeding | CPT/HCPCS: 43239; 45380 ==

== ENCOUNTER 2024-02-24 08:09 | Outpatient (AMB) | payer BC, SELFPAY ==
[2024-02-24 08:23] VITALS: BP 118/72; PULSE 74; O2SAT 97; BMI 33.2
--- NOTE | 2024-02-24 08:23 | MHC.PC.OV ---
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 Accompanied by: Self / Same As Patient Allergies No Known Allergies Allergy (Verified 02/24/24 08:33) Medication List - Last Reconciled 02/24/24 by Franck Rossi PA-C cyclobenzaprine 5 - 10 mg (1 - 2 x 5 mg) PO BEDTIME PRN 30 days famotidine 20 mg PO DAILY 30 days magnesium oxide 400 mg PO BEDTIME 30 days omeprazole 20 mg PO DAILY pantoprazole 20 mg PO BID 2 weeks propranolol ER 60 mg PO BEDTIME 30 days riboflavin (vitamin B2) 400 mg PO DAILY 30 days rizatriptan take 1 tab at onset of headache; if no relief may repeat 1 tab after at least 2 hrs; max = 3 tabs/24 hr PO 21 days Tobacco use date assessed: 02/24/24 Dental Screening Dental Screen Date: 02/24/24 Did you have a dental visit in the last 12 months?: No Did you have a dental problem in the last 6 months where you did not have access to dental care?: No Was dental information given to patient?: Yes HPI 6mth f/u HPI Details Patient is a 48-year-old Maltese-speaking male here today for follow-up visit. Patient has a past medical history significant for migraine disorder, hyperlipidemia, plantar fasciitis. .. Migraines: Patient continues with the p.r.n. use of rizatriptan with good effect. He has been having much less frequent severe migraines. Has followed up with Neurology and was started on muscle relaxer for his jaw and head pain. He reports the medications have been very helpful. .. Hypertriglyceridemia: Most recent fasting lipid panel showing mild hypertriglyceridemia. Has been working on lifestyle modifications. Unfortunately has not been able to be more physically active due to his continued right heel pain. .. Plantar fasciitis : Seeing a on site manager, has done PT without much help . He is interested in getting a cortisone injection though is awaiting insurance approval for this. He has been doing conservative treatment such as taping, compression sleeve and stretching all without any significant relief of his foot pain. 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 Colon cancer screening: Up-to-date colonoscopy, sessile polyp found repeat 7 years Vaccines: Up-to-date with COVID vaccine, received a Tdap in 2018 , [facility] Medical History Hypertriglyceridemia Migraine GERD (gastroesophageal reflux disease) Surgical History History of appendectomy History of repair of anterior cruciate ligament of right knee Family History Mother Hypertension Heart problem Father No problems noted. 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 1. Little interest or pleasure in doing things: not at all 2. Feeling down, depressed, or hopeless: not at all 3. Trouble falling or staying asleep, or sleeping too much: not at all 4. Feeling tired or having little energy: not at all 5. Poor appetite or overeating: not at all 6. Feeling bad about yourself - or that you are a failure or have let yourself or your family down: not at all 7. Trouble concentrating on things, such as reading the newspaper or watching television: not at all 8. Moving or speaking so slowly that other people could have noticed. Or the opposite - being so fidgety or restless that you have been moving around a lot more than usual: not at all 9. Thoughts that you would be better off or of hurting yourself in some way: not at all Total score: 0 Depression Screening Interpretation: Negative Depression Screening Done: Yes 53122 - PHQ-9 Billing: Yes Source: Developed by Drs. Don Wing, Alethea Joseph, Willy Otto and colleagues, with an educational claude from [employer]. Thrive Questionnaire Date Thrive assessed: 02/24/24 I am a: Patient What is your living situation today?: I have a steady place to live Within the past 12 months, did the food you bought not last and you didn't have the money to get more?: Never true Within the past 12 months, did you worry whether your food would run out before you got money to buy more?: Never true Do you have trouble paying for medicines?: No Do you have trouble getting transportation to medical appointments?: No Do you have trouble paying your heating and electricity bill?: No Do you have trouble taking care of your child, family member or friend?: No Do you have trouble with day-to-day activities such as bathing, preparing meals, shopping, managing finances, etc.?: No Are you currently unemployed and looking for a job?: No Are you interested in more education?: No Please select the resources that you would like help with: None Currently or been in a relationship where the following occur: no concerns reported THRIVE Score: 0 AUDIT C Alcohol Use Questionnaire (AUDIT-C) 1. How often do you have a drink containing alcohol?: Monthly or less 2. How many drinks containing alcohol do you have on a typical day when you are drinking?: 1 or 2 3. How often do you have six or more drinks on one occasion?: Never Total Score: 1 PADILLA-7 AMB Questionnaire PADILLA-7 Date PADILLA - 7 assessed: 02/24/24 Feeling nervous, anxious, or on edge: 0 = Not at all Not being able to stop or control worryin = Not at all Worrying too much about different things: 0 = Not at all Trouble relaxin = Not at all Being so restless that it is hard to sit still: 0 = Not at all Becoming easily annoyed or irritable: 0 = Not at all Feeling afraid as if something awful might happen: 0 = Not at all Total PADILLA-7 score (0-4 normal; 5-9 mild; 10-14 moderate; 15-21 severe): 0 Source: Developed by Drs. Don Wing, Willy Maryoenke and colleagues, with an educational claude from [employer]. PADILLA-7 Assessment Billing PADILLA-7 Assessment Tool: PADILLA-7 Assessment 19020 Review of Systems Const Denies excessive sweating, Denies fatigue and Denies headache(s) Eyes Denies loss of vision ENT Denies vertigo, Denies dizziness, Denies headache(s) and Denies sore throat Card Denies chest pain, Denies leg edema and Denies lightheadedness Resp Denies cough, Denies hemoptysis and Denies wheezing GI Denies abdominal pain, Denies melena, Denies constipation, Denies diarrhea and Denies vomiting Denies dysuria, Denies urinary frequency and Denies urinary urgency Musc Denies arthralgias, Denies joint swelling, Denies numbness and Denies tingling Skin/Breast Denies rash and Denies skin ulcer Neuro Denies Abnormal speech present, Denies behavioral changes, Denies vertigo, Denies dizziness, Denies headache(s), Denies loss of vision, Denies memory loss, Denies numbness and Denies tingling Psych Denies anxiety, Denies behavioral changes, Denies depression, Denies memory loss and Denies panic attacks Endo Denies excessive sweating, Denies fatigue, Denies flushing, Denies polydipsia and Denies polyuria Mark/Lymph Denies easy bleeding and Denies easy bruising Aller/Immun Denies wheezing Physical exam (Primary Care) Vital Signs: Last Vital Signs Pulse 74 02/24/24 08:23 BP 118/72 02/24/24 08:23 Pulse Ox 97 02/24/24 08:23 Oxygen Delivery Method Room Air 02/24/24 08:23 BMI result Body Mass Index 33.2 Tobacco/Smoking Status: Tobacco use Status Tobacco use date assessed 02/24/24 02/24/24 08:31 Patient Tobacco Use Status Never used Tobacco 02/24/24 08:31 Tobacco use type Cigarette 02/24/24 08:31 e-Cigarette/Vaping Use Never Used 02/24/24 08:31 PHQ-9: PHQ-9 Score PHQ-9: Total score 0 02/24/24 08:31 Depression Screening Interpretation: Negative Thrive Assessment: Date of Thrive Assessment Date Thrive assessed 02/24/24 02/24/24 08:31 Currently or been in a relationship where the following occur: no concerns reported Const General: healthy appearing, no acute distress, alert and awake Nutritional Appearance: well nourished Orientation/consciousness: oriented to person, oriented to place and oriented to time HENMT Head: Yes normocephalic Ears: TM's normal bilaterally General nose exam: Normal nasal mucous membranes and turbinates present Face and sinus: No sinus tenderness Mouth: Normal oral and palatal mucosa present and tongue normal Teeth and gingiva: dentition normal and gingiva normal Throat: Yes posterior oropharynx normal, Yes tonsils normal and Yes uvula midline Eyes Conjunctivae: conjunctivae normal Sclerae: sclerae normal Pupils: Equal, round and reactive pupils present EOM: EOMs intact bilaterally Direct Ophthalmoscopy: No no photophobia Neck Neck: Yes no lymphadenopathy and Yes no JVD Thyroid: Thyroid normal Carotids: no bruits Chest Chest palpation & inspection: no tenderness Resp Effort & Inspection: normal respiratory effort and not tachypneic Auscultation: no crackles, no rales, no rhonchi and no wheezes Cardio Jugular venous distension: no JVD Rate: regular rate Rhythm: regular rhythm Heart sounds: no murmurs and normal S1 and S2 Bruits: no carotid bruits Peripheral pulses: Peripheral pulses 2+ throughout GI Inspection: Yes normal to inspection, No abdominal wall ecchymosis and No visible herniation Palpation (GI): Soft to palpation, nontender, no hepatomegaly and no splenomegaly Auscultation: normal bowel sounds General: Yes no CVA tenderness Back/Spine/Pelvis Back: no CVA tenderness and No back tenderness Cervical Spine: cervical ROM normal Thoracic/Lumbar Spine: thoracic and lumbar spine normal to inspection, straight leg raise negative bilaterally, No thoraco-lumbar ROM limited and No lumbar spinal tenderness Skin General skin exam: no rashes or lesions noted and dry skin Lesions: no lesions Rashes: no rashes Wounds: no wounds Neuro General: oriented to person, oriented to place and oriented to time Cranial nerves: Yes Equal, round and reactive pupils present Cognition (Neuro): normal cognition Speech: No Abnormal speech present Gait exam (Neuro): Normal gait present Motor exam (neuro): no tremor noted Extrem Right upper extremity: full ROM Left upper extremity: full ROM Right lower extremity: full ROM; no edema Left lower extremity: full ROM; no edema Psych Appearance: grossly normal Mental Status: mental status grossly normal Speech and movement: Normal speech and movement present Affect: normal affect Attitude: cooperative Thought process: Normal thought process present Assessment and Plan Assessment & Plan (1) Hypertriglyceridemia: Code(s): E78.1 - Pure hyperglyceridemia Plan: Patient has a history of mild hypertriglyceridemia. Advised to work on low closer I diet and try to be more physically active. At this point does not need medication. (2) Migraine: Code(s): G43.909 - Migraine, unspecified, not intractable, without status migrainosus Qualifiers: Intractability: not intractable Migraine type: with aura Status migrainosus presence: with status migrainosus Qualified Code(s): G43.101 - Migraine with aura, not intractable, with status migrainosus Plan: Patient continues to suffer with migraines though at a lesser degree. Now followed by Neurology. He has been started on cyclobenzaprine which has really helped his migraines.. Has been continues on beta-eleno, rizatriptan and vitamins to help him with his daily migraines. (3) GERD (gastroesophageal reflux disease): Comment: reflux precautions- pantoprazole 20 mg QD Code(s): K21.9 - Gastro-esophageal reflux disease without esophagitis Qualifiers: Esophagitis presence: without esophagitis Qualified Code(s): K21.9 - Gastro-esophageal reflux disease without esophagitis Plan: He was found to have H pylori infection which was treated antibiotic treatment. He continues with the use of pantoprazole 20 mg daily with good effect on his gastritis. (4) Plantar fascia syndrome: Code(s): M72.2 - Plantar fascial fibromatosis Plan: Had been followed by podiatry and still waiting to receive a cortisone injection. Has been doing a lot of conservative treatment such as stretching and icing without much relief. He has been using compression ankle brace and taping which has been somewhat helpful though continues to be in pain. Would like a 2nd opinion from Podiatry to see if we can get an injection sooner. Orders: Referrals Podiatry Referral M72.2 - Plantar fascial fibromatosis Medications: Changed From pantoprazole 20 mg PO BID 2 weeks 28 tabs 0RF K21.9 - Gastro-esophageal reflux disease without esophagitis To pantoprazole 20 mg PO QAM 90 tabs 1RF 90 days K21.9 - Gastro-esophageal reflux disease without esophagitis Refilled propranolol ER 60 mg PO BEDTIME 30 caps 3RF 30 days M72.2 - Plantar fascial fibromatosis rizatriptan take 1 tab at onset of headache; if no relief may repeat 1 tab after at least 2 hrs; max = 3 tabs/24 hr PO 12 tabs 3RF 21 days G43.101 - Migraine with aura, not intractable, with status migrainosus Discontinued omeprazole Discontinued Reason: Doctor's Order 20 mg PO DAILY 90 caps 1RF famotidine Discontinued Reason: Doctor's Order 20 mg PO DAILY 30 days 30 tabs 6RF G43.101 - Migraine with aura, not intractable, with status migrainosus Patient Instructions: Goal: Control cholesterol, triglycerides to be below 150, reduce plantar fasciitis pain Barriers: Adherence to physical activity and healthy eating habits Coding Level of Care Code Est Pt Level 4 (70874) Diagnoses Hypertriglyceridemia E78.1 Migraine with aura and with status migrainosus, not intractable G43.101 Intractability: not intractable Migraine type: with aura Status migrainosus presence: with status migrainosus Gastroesophageal reflux disease without esophagitis K21.9 Esophagitis presence: without esophagitis Plantar fascia syndrome M72.2 Additional Codes PADILLA-7 Assessment Billing - PADILLA-7 Assessment Tool: PADILLA-7 Assessment 78450 ([id number])
== END 2024-02-24 08:50 | disposition home or self-care (01) ==
PROVIDERS: PCP Physician Assistant; Visit Provider Physician Assistant
DX: E78.1 Pure hyperglyceridemia (principal); G43.101 Migraine with aura, not intractable, with status migrainosus; K21.9 Gastro-esophageal reflux disease without esophagitis; M72.2 Plantar fascial fibromatosis
CPT/HCPCS: 99214

== ENCOUNTER 2024-03-29 14:56 | Outpatient (AMB) | payer BC, SELFPAY ==
--- NOTE | 2024-03-29 14:59 | MHC.OFFVIS ---
Vital Signs 03/29/24 15:00 Height 5 ft 5 in Weight 198 lb BMI 32.9 BP 120/92 H Blood Pressure Location Rt brachial Position Sitting Pulse 104 H Pulse Source Pulse Oximeter Pulse Oximetry (%) 96 Oxygen Delivery Method Room Air Intake Visit Reasons: 4/5 mo f/u-CONF Intake Note: Patient presents for 5 month follow up headaches have been better since taking the new meds given to me. 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: Yes Branch Billing Payroll Clerk Name: abena serrano Information Interpreted: non-clinical & clinical Allergies No Known Allergies Allergy (Verified 03/29/24 15:03) Medication List - Last Reconciled 03/29/24 by KARLI Lara cyclobenzaprine 5 - 10 mg (1 - 2 x 5 mg) PO BEDTIME PRN 30 days magnesium oxide 400 mg PO BEDTIME 30 days pantoprazole 20 mg PO QAM 90 days propranolol ER 60 mg PO BEDTIME 30 days riboflavin (vitamin B2) 400 mg PO DAILY 30 days rizatriptan take 1 tab at onset of headache; if no relief may repeat 1 tab after at least 2 hrs; max = 3 tabs/24 hr PO 21 days HPI Comments Details: 48-yr-old female presents for f/u visit. Pt denies any significant interval medical changes. Pt reports he is doing better since starting cyclobenzaprine 5mg qhs and using a mouth guard nightly. He can still have an exertional headache, though not as frequently. Pt has still not had f/u brain MRI. Previous head CT results were non-diagnostic. Baseline headache characteristics: Severe, Left sided pressure, pulsating, a/w photophobia, nausea, dizziness, activity intolerance, left eye watery. [facility] Medical History Hypertriglyceridemia Migraine GERD (gastroesophageal reflux disease) Surgical History History of appendectomy History of repair of anterior cruciate ligament of right knee Family History Mother Hypertension Heart problem Father No problems noted. 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 - [employer] Current occupational exposures/hazards: No Cognitive needs: No Hearing needs: No Vision needs: No Physical Exam Vital Signs: Last Vital Signs Pulse 104 H 03/29/24 15:00 BP 120/92 H 03/29/24 15:00 Pulse Ox 96 03/29/24 15:00 Oxygen Delivery Method Room Air 03/29/24 15:00 BMI result Body Mass Index 32.9 Const General: cooperative and no acute distress Orientation/consciousness: patient oriented x3 Resp Effort & Inspection: normal respiratory effort and able to speak in complete sentences Neuro General: patient oriented x3 Cranial nerves: Yes CN's II-XII intact bilaterally Cognition (Neuro): normal cognition Psych Appearance: grossly normal Mental Status: mental status grossly normal Speech and movement: Normal speech and movement present Affect: normal affect Attitude: cooperative Assessment & Plan Assessment & Plan (1) Migraine: Code(s): G43.909 - Migraine, unspecified, not intractable, without status migrainosus Category: Medical Qualifiers: Migraine type: with aura Status migrainosus presence: with status migrainosus Intractability: not intractable Qualified Code(s): G43.101 - Migraine with aura, not intractable, with status migrainosus (2) Exertional headache: Code(s): G44.84 - Primary exertional headache Category: Medical Plan Pt again advised to undergo brain MRI w/wo to assess for secondary etiologies of exertional headaches. 07/07/2023 CT/CT head/brain wo IV con: No acute intracranial pathology. ? For overall headache management: Continue to optimize good self-care, including but not limited to maintaining a healthy diet, adequate fluid intake, adequate sleep, and engaging in regular physical activity. For headache triggers: Track headaches Light sensitivity tips: Patient may try blue light filtering glasses, green glasses, green light therapy.. Avoid wearing sunglasses inside- but do wear upon exiting work and going outside ? For bruxism: Continue Cyclobenzaprine 5 mg qhs. Continue wearing mouth guard qhs. ? For acute headache treatment: Discussed importance of taking acute medications at the first sign of headache. Continue Rizatriptan prn. Continue Excedrin use. Previous acute migraine medication trials: None other Acute migraine medication contraindications: None ? For headache prevention medication: Continue Riboflavin 400mg qam Continue Magnesium 400mg qhs Pt believes he has stopped- may continue to hold Propranolol 60mg ER cap qhs Previous migraine prevention medication trials: None other Migraine prevention medication contraindications: None at this time ? Pt to follow-up in 6 months or sooner prn. Orders: Orders MR head/brain wo/w con Today E78.1 - Pure hyperglyceridemia, G44.84 - Primary exertional headache, H53.8 - Other visual disturbances Medications: Changed From cyclobenzaprine 5 - 10 mg (1 - 2 x 5 mg) PO BEDTIME 30 days PRN 60 tabs 3RF bruxism To cyclobenzaprine 5 mg PO BEDTIME 30 days PRN 60 tabs 6RF bruxism Refilled riboflavin (vitamin B2) 400 mg PO DAILY 30 days 30 tabs 6RF magnesium oxide may hold for loose stools 400 mg PO BEDTIME 30 days 30 tabs 6RF Coding Level of Care Code Est Pt Level 4 (20098) Diagnoses Migraine with aura and with status migrainosus, not intractable G43.101 Migraine type: with aura Status migrainosus presence: with status migrainosus Intractability: not intractable Exertional headache G44.84
[2024-03-29 15:00] VITALS: BP 120/92; PULSE 104; O2SAT 96; BMI 32.9
== END 2024-03-29 15:30 | disposition home or self-care (01) ==
PROVIDERS: PCP Physician Assistant; Visit Provider Nurse Practitioner Family
DX: G43.101 Migraine with aura, not intractable, with status migrainosus (principal); G44.84 Primary exertional headache
CPT/HCPCS: 99214

== ENCOUNTER → 2024-03-29 14:56 | Outpatient (BNVA) | payer BC, SELFPAY | PROVIDERS: PCP Physician Assistant; Visit Provider Nurse Practitioner Family ==

== ENCOUNTER 2024-05-05 07:58 | Outpatient (REF) | payer BC, SELFPAY ==
--- NOTE | ~2024-05-05 | MR_ITS ---
EXAMINATION: MR BRAIN WITHOUT AND WITH CONTRAST CLINICAL INFORMATION: 48-year-old with primary exertional headache. COMPARISON: None available. TECHNIQUE: Multiplanar, multisequence MRI of the brain was obtained before and after the intravenous administration of 7.5 mL Gadavist. FINDINGS: Brain Volume: Within normal limits within the limitations of qualitative assessment. Structural: No structural malformations. Brain and Meninges: DWI sequence demonstrates no restricted diffusion to suggest acute or subacute cerebral ischemia. A few punctate FLAIR/T2 signal hyperintensities are seen in the subcortical frontal white matter bilaterally are nonspecific findings and in the left peritrigonal white matter. Gradient refocused imaging demonstrates no abnormal susceptibility-weighted signal loss to suggest hemorrhage, hemosiderin staining or abnormal mineralization. No intracranial mass lesions, extra-axial fluid collections, space occupying process, mass effect or pathologic intracranial enhancement are identified. Ventricles and Subarachnoid Spaces: The ventricular system and subarachnoid spaces are within normal range; there is no hydrocephalus. Orbital Structures: There are mildly prominent superior ophthalmic veins with no other grossly abnormal orbital or retro-orbital findings within the limitations of the study. Nonspecific. Vascular: Signal voids are noted in the visualized major intracranial vessels. Osseous Structures, Sinuses/Mastoids, Extracranial Soft Tissues: Bone marrow signal intensity is within normal limits. There is sinusoidal nasal septal deviation. Minor mucosal thickening in the ethmoid complex. MR/MR head/brain wo/w con IMPRESSION: 1. A few punctate nonenhancing white matter T2 hyperintensities are seen in the cerebral hemispheres which are nonspecific findings. 2. No intracranial mass lesion, pathologic enhancement, space-occupying process, mass effect, hemorrhage, or hydrocephalus. 3. Minor mucosal thickening in the ethmoid complex and sinusoidal nasal septal deviation. Electronically signed by: Leander Davis MD 05/25/2024 10:43 AM EDT
[2024-05-05] MEDS: gadobutroL 7.5 ML VIAL IVPUSH (09:04)
== END 2024-05-05 07:59 | disposition home or self-care (01) ==
LOC: HO.MRI 07:58
PROVIDERS: PCP Physician Assistant; Visit Provider Nurse Practitioner Family
DX: G44.84 Primary exertional headache (principal); H53.8 Other visual disturbances; E78.1 Pure hyperglyceridemia
CPT/HCPCS: 70553; A9585

== ENCOUNTER 2024-08-25 08:03 | Outpatient (REF) | payer BC, SELFPAY ==
[2024-08-25 08:29] LABS: Hematocrit 45.5 % (42.0-52.0); Hemoglobin 15.3 g/dl (14.0-18.0); Mean Corpuscular HGB Conc 33.6 g/dl (31.0-36.0); Mean Corpuscular Hemoglobin 28.1 pg (27.0-33.0); Mean Corpuscular Volume 83.6 fL (80.0-98.0); Mean Platelet Volume 9.5 fL (9.4-12.4); Platelet Count 267 X10*3/uL (160-400); Red Blood Count 5.44 X10*6/uL (4.60-5.80); Red Cell Distribution Width 13.9 % (11.0-16.0); White Blood Count 8.1 X10*3/uL (4.8-10.8)
[2024-08-25 08:55] LABS: Alanine Aminotransferase 34 U/L (0-40); Albumin Level 4.3 g/dL (3.5-5.0); Alkaline Phosphatase 106 U/L (39-117); Anion Gap 11 (12-20); Aspartate Amino Transferase 24 U/L (5-37); Bilirubin Total 0.5 mg/dL (0.0-1.0); Blood Urea Nitrogen 17 mg/dL (9-16); Calcium 9.9 mg/dL (8.4-10.2); Carbon Dioxide 29 mmol/L (22-29); Chloride 106 mmol/L (96-108); Cholesterol 166 mg/dL (<200); Estimated Glomerular Filt Rate > 60; Glucose Fasting 118 mg/dL (60-99); HDL Cholesterol 45 mg/dL (>40); LDL Cholesterol Calculated 99 mg/dL (<100); Potassium 4.7 mmol/L (3.3-5.1); Sodium 141 mmol/L (135-145); Total Protein 7.6 g/dL (6.5-8.0); Triglycerides 112 mg/dL (<150)
[2024-08-25 09:12] LABS: Prostate Specific Antigen Scr 0.61 ng/mL (<0.05-4.0)
== END 2024-08-25 08:04 | disposition home or self-care (01) ==
LOC: HO.LAB 08:03
PROVIDERS: PCP Physician Assistant; Visit Provider Physician Assistant
DX: E78.1 Pure hyperglyceridemia (principal); Z13.1 Encounter for screening for diabetes mellitus; Z12.5 Encounter for screening for malignant neoplasm of prostate
CPT/HCPCS: 36415; 80053; 80061; 84153; 85027

== ENCOUNTER 2024-08-29 07:54 | Outpatient (AMB) | payer BC, SELFPAY ==
--- NOTE | 2024-08-29 08:03 | A.OFFPC_ITS ---
Vital Signs 08/29/24 08:04 Height 5 ft 5 in Weight 200 lb 6 oz BMI 33.3 BP 128/62 Blood Pressure Location Lt brachial Position Sitting Pulse 76 Pulse Source Pulse Oximeter Pulse Oximetry (%) 97 Oxygen Delivery Method Room Air Intake Visit Reasons: Annual Exam Intake Note: Patient is here today for a physical. Pt decline flu shot today. 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 Name: Dulce [id number] Information Interpreted: non-clinical & clinical Sterile Process Coordinator: Present Accompanied by: Child Allergies No Known Allergies Allergy (Verified 08/29/24 08:21) Medication List - Last Reconciled 08/29/24 by Franck Rossi PA-C cyclobenzaprine 5 mg PO BEDTIME PRN 30 days magnesium oxide 400 mg PO BEDTIME 30 days pantoprazole 20 mg PO QAM 90 days propranolol ER 60 mg PO BEDTIME 30 days riboflavin (vitamin B2) 400 mg PO DAILY 30 days rizatriptan take 1 tab at onset of headache; if no relief may repeat 1 tab after at least 2 hrs; max = 3 tabs/24 hr PO 21 days Tobacco use date assessed: 08/29/24 Dental Screening Dental Screen Date: 02/24/24 HPI Annual Exam HPI Details Patient is a 49-year-old Belgian-speaking male here today for annual physical Patient has a past medical history significant for migraine disorder, hyperlipidemia, plantar fasciitis. .. Migraines: Patient continues with the p.r.n. use of rizatriptan with good effect. He has been having much less frequent severe migraines. Has followed up with Neurology and was started on muscle relaxer for his jaw and head pain. He reports the medications have been very helpful. .. Hypertriglyceridemia: Most recent fasting lipid panel showing improved triglycerides. Has been working on lifestyle modifications. Unfortunately has not been able to be more physically active due to his continued right heel pain. .. Plantar fasciitis : He has gotten a shot in his plantar region which has resolved his chronic plantar pain. Colon cancer screening: colonoscopy done in 2023, sessile polyp found repeat 7 years Vaccines: Up-to-date with COVID vaccine, received a Tdap in 2018 Labs: Reviewed with patient and noted elevated fasting blood sugar 118. Will commence lifestyle and dietary modifications and recheck fasting blood sugar in 6 months. Laboratory Tests 07/10/22 08/25/24 08:41 08:23 RBC 5.44 Fasting Glucose 101 H 118 H LDL Cholesterol, C alc 97 99 PSA Screen 0.61 PFSH Medical History Hypertriglyceridemia Migraine GERD (gastroesophageal reflux disease) Surgical History History of appendectomy History of repair of anterior cruciate ligament of right knee Family History Mother Hypertension Heart problem Father No problems noted. 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 1. Little interest or pleasure in doing things: not at all 2. Feeling down, depressed, or hopeless: not at all 3. Trouble falling or staying asleep, or sleeping too much: not at all 4. Feeling tired or having little energy: not at all 5. Poor appetite or overeating: not at all 6. Feeling bad about yourself - or that you are a failure or have let yourself or your family down: not at all 7. Trouble concentrating on things, such as reading the newspaper or watching television: not at all 8. Moving or speaking so slowly that other people could have noticed. Or the opposite - being so fidgety or restless that you have been moving around a lot more than usual: not at all 9. Thoughts that you would be better off or of hurting yourself in some way: not at all Total score: 0 Depression Screening Interpretation: Negative Depression Screening Done: Yes 27498 - PHQ-9 Billing: Yes Source: Developed by Drs. Don Wing, Alethea BWilly Flannery and colleagues, with an educational claude from [employer]. Thrive Questionnaire Date Thrive assessed: 08/29/24 I am a: Patient What is your living situation today?: I have a steady place to live Within the past 12 months, did the food you bought not last and you didn't have the money to get more?: I choose not to answer this question Within the past 12 months, did you worry whether your food would run out before you got money to buy more?: Never true Do you have trouble paying for medicines?: No Do you have trouble getting transportation to medical appointments?: No Do you have trouble paying your heating and electricity bill?: No Do you have trouble taking care of your child, family member or friend?: No Do you have trouble with day-to-day activities such as bathing, preparing meals, shopping, managing finances, etc.?: No Are you currently unemployed and looking for a job?: No Are you interested in more education?: Yes Please select the resources that you would like help with: None Currently or been in a relationship where the following occur: No concerns reported THRIVE Score: 0 AUDIT C Alcohol Use Questionnaire (AUDIT-C) 1. How often do you have a drink containing alcohol?: Never Total Score: 0 PADILLA-7 AMB Questionnaire PADILLA-7 Date PADILLA - 7 assessed: 08/29/24 Feeling nervous, anxious, or on edge: 0 = Not at all Not being able to stop or control worryin = Not at all Worrying too much about different things: 0 = Not at all Trouble relaxin = Not at all Being so restless that it is hard to sit still: 0 = Not at all Becoming easily annoyed or irritable: 0 = Not at all Feeling afraid as if something awful might happen: 0 = Not at all Total PADILLA-7 score (0-4 normal; 5-9 mild; 10-14 moderate; 15-21 severe): 0 Source: Developed by Drs. Don Wing, Willy Mary and colleagues, with an educational claude from [employer]. PADILLA-7 Assessment Billing PADILLA-7 Assessment Tool: PADILLA-7 Assessment 45530 Review of Systems Const Denies body aches, Denies chills, Denies excessive sweating, Denies fatigue, Denies fever(s) and Denies headache(s) Eyes Denies blurry vision ENT Denies dysphagia, Denies vertigo, Denies dizziness, Denies headache(s), Denies hearing loss and Denies tinnitus Card Denies chest pain, Denies chest pain with activity, Denies syncope, Denies irregular heart rhythm and Denies dyspnea Resp Denies chest congestion, Denies cough, Denies hemoptysis, Denies dyspnea and Denies wheezing GI Denies abdominal pain, Denies melena, Denies hematochezia, Denies coffee ground emesis, Denies dysphagia, Denies diarrhea, Denies nausea and Denies vomiting Denies difficulty urinating, Denies dysuria, Denies urinary frequency, Denies urinary hesitancy and Denies urinary urgency Musc Denies arthralgias, Denies limited range of motion, Denies muscle cramps and Denies muscle weakness Skin/Breast Denies rash and Denies skin ulcer Neuro Denies Abnormal speech present, Denies confusion, Denies vertigo, Denies dizziness, Denies syncope, Denies headache(s), Denies memory loss and Denies seizure-like activity Psych Denies anxiety, Denies confusion, Denies depression, Denies memory loss, Denies panic attacks and Denies paranoia Endo Denies excessive sweating, Denies fatigue, Denies flushing, Denies polydipsia and Denies polyuria Aller/Immun Denies wheezing Physical exam (Primary Care) Vital Signs: Last Vital Signs Pulse 76 08/29/24 08:04 BP 128/62 08/29/24 08:04 Pulse Ox 97 08/29/24 08:04 Oxygen Delivery Method Room Air 08/29/24 08:04 BMI result Body Mass Index 33.3 Tobacco/Smoking Status: Tobacco use Status Tobacco use date assessed 08/29/24 08/29/24 08:13 Patient Tobacco Use Status Never used Tobacco 08/29/24 08:13 Tobacco use type Cigarette 08/29/24 08:13 e-Cigarette/Vaping Use Never Used 08/29/24 08:13 PHQ-9: PHQ-9 Score PHQ-9: Total score 0 08/29/24 08:13 Depression Screening Interpretation: Negative Thrive Assessment: Date of Thrive Assessment Date Thrive assessed 12/16/24 12/16/24 08:13 Currently or been in a relationship where the following occur: No concerns reported Const General: cooperative, comfortable, no acute distress, alert and awake; No confusion Orientation/consciousness: oriented to person, oriented to place, patient oriented x3 and No confusion HENMT Head: Yes normocephalic Ears: external ears normal and TM's normal bilaterally Face and sinus: No sinus tenderness Mouth: Normal oral and palatal mucosa present and tongue normal Teeth and gingiva: dentition normal and gingiva normal Throat: Yes posterior oropharynx normal, Yes tonsils normal and Yes uvula midline Eyes Conjunctivae: conjunctivae normal Sclerae: sclerae normal Pupils: Equal, round and reactive pupils present EOM: EOMs intact bilaterally Direct Ophthalmoscopy: No no photophobia Neck Neck: Yes no lymphadenopathy, No tender and Yes no JVD Thyroid: Thyroid normal Carotids: no bruits Chest Chest palpation & inspection: no tenderness Resp Effort & Inspection: normal respiratory effort, no audible wheezes, not labored and no stridor Auscultation: no crackles, no rales, no rhonchi and no wheezes Cardio Jugular venous distension: no JVD Rate: regular rate, not bradycardic and not tachycardic Rhythm: regular rhythm Bruits: no carotid bruits Peripheral pulses: Peripheral pulses 2+ throughout GI Inspection: Yes normal to inspection, No abdominal wall ecchymosis and No visible herniation Palpation (GI): Soft to palpation, nontender, no guarding, not rigid and No hepatosplenomegaly present Auscultation: normoactive bowel sounds General: Yes no CVA tenderness Back/Spine/Pelvis Back: no CVA tenderness and No back tenderness Cervical Spine: cervical ROM normal Thoracic/Lumbar Spine: thoracic and lumbar spine normal to inspection, straight leg raise negative bilaterally, No thoraco-lumbar ROM limited and No lumbar spinal tenderness Skin Lesions: no lesions Rashes: no rashes Wounds: no wounds Neuro General: oriented to person, oriented to place, patient oriented x3, CN's II-XI intact bilaterally and No confusion Cranial nerves: Yes Equal, round and reactive pupils present and Yes Normal accommodation reflex present Cognition (Neuro): normal cognition Speech: No Abnormal speech present Gait exam (Neuro): Normal gait present Motor exam (neuro): 5/5 motor strength present throughout Extrem Right upper extremity: full ROM; no cyanosis Left upper extremity: full ROM; no cyanosis Right lower extremity: no edema Left lower extremity: no edema Psych Appearance: grossly normal Mental Status: mental status grossly normal Affect: normal affect Attitude: cooperative Thought process: Normal thought process present Coding Level of Care Code Est Pt Prev Care 40-64y(97046) Diagnoses Annual physical exam Z00.00 Impaired glucose metabolism R73.09 Migraine with aura and with status migrainosus, not intractable G43.101 Migraine type: with aura Status migrainosus presence: with status migrainosus Intractability: not intractable Hypertriglyceridemia E78.1 Additional Codes PHQ-9 - 17152 - PHQ-9 Billing: Yes ([id number]) PADILLA-7 Assessment Billing - PADILLA-7 Assessment Tool: PADILLA-7 Assessment [id number] ([id number]) Assessment & Plan Assessment & Plan (1) Annual physical exam: Code(s): Z00.00 - Encounter for general adult medical examination without abnormal findings Category: Medical Plan: As per HPI (2) Impaired glucose metabolism: Code(s): R73.09 - Other abnormal glucose Category: Medical Plan: Patient's most recent fasting blood sugar at 01:18. He will commence better lifestyle and dietary changes. Will recheck fasting blood sugar in 6 months. (3) Migraine: Code(s): G43.909 - Migraine, unspecified, not intractable, without status migrainosus Category: Medical Qualifiers: Migraine type: with aura Status migrainosus presence: with status migrainosus Intractability: not intractable Qualified Code(s): G43.101 - Migraine with aura, not intractable, with status migrainosus Plan: Patient reports his migraines has been well controlled with maintenance medication and only really limited use of rizatriptan. (4) Hypertriglyceridemia: Code(s): E78.1 - Pure hyperglyceridemia Category: Medical Plan: Patient's most recent lipid panel showing excellent control of his total cholesterol and triglycerides. Will continue with lifestyle and dietary modifications. Goal triglycerides to remain below 150 Orders: Orders Hemoglobin A1c 6 Months R73.09 - Other abnormal glucose Comprehensive [place]. Panel Fast 6 Months R73.09 - Other abnormal glucose Lipid Panel 6 Months E78.1 - Pure hyperglyceridemia Medications: Refilled pantoprazole 20 mg PO QAM 90 days 90 tabs 1RF K21.9 - Gastro-esophageal reflux disease without esophagitis
[2024-08-29 08:04] VITALS: BP 128/62; PULSE 76; O2SAT 97; BMI 33.3
== END 2024-08-29 08:30 | disposition home or self-care (01) ==
PROVIDERS: PCP Physician Assistant; Visit Provider Physician Assistant
DX: Z00.00 Encounter for general adult medical examination without abnormal findings (principal); R73.09 Other abnormal glucose; G43.101 Migraine with aura, not intractable, with status migrainosus; E78.1 Pure hyperglyceridemia

== ENCOUNTER → 2024-08-29 07:54 | Outpatient (BNVA) | payer BC, SELFPAY | PROVIDERS: PCP Physician Assistant; Visit Provider Physician Assistant | DX: Z00.00 Encounter for general adult medical examination without abnormal findings (principal); R73.09 Other abnormal glucose; G43.101 Migraine with aura, not intractable, with status migrainosus; E78.1 Pure hyperglyceridemia; K21.9 Gastro-esophageal reflux disease without esophagitis | CPT/HCPCS: 96127 ==

== ENCOUNTER 2024-10-14 08:48 | Outpatient (AMB) | payer BC, SELFPAY ==
[2024-10-14 09:03] VITALS: BP 130/90; BMI 33.6
--- NOTE | 2024-10-14 09:03 | A.OFFVIS_ITS ---
Vital Signs 10/14/24 09:03 Height 5 ft 5 in Weight 202 lb BMI 33.6 BP 130/90 H Blood Pressure Location Rt brachial Position Sitting Intake Visit Reasons: Follow Up Intake Note: Patient presents for follow up Allergies No Known Allergies Allergy (Verified 10/14/24 09:05) HPI Comments Details: 49-yr-old female presents for f/u visit for migraine and bruxism Pt denies any significant interval medical changes. 05/05/2024, MR/MR head/brain wo/w con: 1. A few punctate nonenhancing white matter T2 hyperintensities are seen in the cerebral hemispheres which are nonspecific findings. 2. No intracranial mass lesion, pathologic enhancement, space-occupying process, mass effect, hemorrhage, or hydrocephalus. 3. Minor mucosal thickening in the ethmoid complex and sinusoidal nasal septal deviation. On review of patient's brain MRI. Patient acknowledged that he is not overly physically active at this point. He is curious if it is okay if he takes a morning coffee with some milk and sugar. Patient states he is doing well overall. He still finds cyclobenzaprine to be helpful. He is having occasional headache, needing to use rizatriptan about 3 times month which is usually effective. Baseline headache characteristics: Severe, Left sided pressure, pulsating, a/w photophobia, nausea, dizziness, activity intolerance, left eye watery. [facility] Medical History Hypertriglyceridemia Migraine GERD (gastroesophageal reflux disease) Surgical History History of appendectomy History of repair of anterior cruciate ligament of right knee Family History Mother Hypertension Heart problem Father No problems noted. 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 - [employer] Current occupational exposures/hazards: No Cognitive needs: No Hearing needs: No Vision needs: No Physical Exam Vital Signs: Last Vital Signs BP 130/90 H 10/14/24 09:03 BMI result Body Mass Index 33.6 Const General: cooperative and no acute distress Orientation/consciousness: patient oriented x3 Resp Effort & Inspection: normal respiratory effort and able to speak in complete sentences Neuro General: patient oriented x3 Cranial nerves: Yes CN's II-XII intact bilaterally Cognition (Neuro): normal cognition Psych Appearance: grossly normal Mental Status: mental status grossly normal Speech and movement: Normal speech and movement present Affect: normal affect Attitude: cooperative Assessment & Plan Assessment & Plan (1) Migraine: Code(s): G43.909 - Migraine, unspecified, not intractable, without status migrainosus Category: Medical Qualifiers: Migraine type: with aura Status migrainosus presence: with status migrainosus Intractability: not intractable Qualified Code(s): G43.101 - Migraine with aura, not intractable, with status migrainosus (2) Exertional headache: Code(s): G44.84 - Primary exertional headache Category: Medical Plan Reviewed 05/05/2024 brain MRI w/wo report and images with patient: No acute findings. No findings to account for patient's symptoms. There were a few punctuate nonenhancing white matter T2 hyperintensities in the cerebral hemispheres, which are nonspecific- likely changes of microangiopathic or migraine vasculopathy. Patient encouraged to optimize his overall cardiovascular and metabolic risk factors, through eating a healthy diet comprised of increased fruits and vegetables, whole grains. No indication for him to not take coffee, advised to be mindful regarding the quantity of sugar is using in his coffee. Also encouraged to increase regular physical activity to a goal of 30-45 minutes of moderate activity per week, such as walking, indoor cycling, and/or light strength training- patient notes he can not run due to h/o right knee injury. And encouraged to optimize sleep hygiene. ? For overall headache management: Continue to optimize good self-care, including but not limited to maintaining a healthy diet, adequate fluid intake, adequate sleep, and engaging in regular physical activity. For headache triggers: Track headaches Light sensitivity tips: Patient may try blue light filtering glasses, green glasses, green light therapy.. Avoid wearing sunglasses inside- but do wear upon exiting work and going outside ? For bruxism: Continue Cyclobenzaprine 5 mg qhs. Continue wearing mouth guard qhs. ? For acute headache treatment: Continue Rizatriptan prn. Continue Excedrin use. Previous acute migraine medication trials: None other Acute migraine medication contraindications: None ? For headache prevention medication: Continue Riboflavin 400mg qam Continue Magnesium 400mg qhs Previous migraine prevention medication trials: Propranolol 60 mg ER- ineffective. Migraine prevention medication contraindications: None at this time ? Pt to follow-up in 6 months or sooner prn. Medications: Refilled riboflavin (vitamin B2) 400 mg PO DAILY 30 tabs 6RF 30 days rizatriptan take 1 tab at onset of headache; if no relief may repeat 1 tab after at least 2 hrs; max = 3 tabs/24 hr PO 12 tabs 3RF 21 days G43.101 - Migraine with aura, not intractable, with status migrainosus magnesium oxide may hold for loose stools 400 mg PO BEDTIME 30 tabs 6RF 30 days cyclobenzaprine 5 mg PO BEDTIME PRN 60 tabs 6RF bruxism 30 days Coding Level of Care Code Est Pt Level 4 (16951) Diagnoses Migraine with aura and with status migrainosus, not intractable G43.101 Migraine type: with aura Status migrainosus presence: with status migrainosus Intractability: not intractable Exertional headache G44.84
== END 2024-10-14 09:33 | disposition home or self-care (01) ==
PROVIDERS: PCP Physician Assistant; Visit Provider Nurse Practitioner Family
DX: G43.101 Migraine with aura, not intractable, with status migrainosus (principal); G44.84 Primary exertional headache
CPT/HCPCS: 99214

== ENCOUNTER 2025-02-28 08:41 | Outpatient (AMB) | payer BC, SELFPAY ==
--- NOTE | 2025-02-28 08:50 | A.OFFPC_ITS ---
Vital Signs 02/28/25 08:53 Height 5 ft 5 in Weight 196 lb 2 oz BMI 32.6 BP 130/78 Blood Pressure Location Lt brachial Position Sitting Pulse 86 Pulse Source Pulse Oximeter Temp 97.3 F Temp Source Temporal Artery Scan Pulse Oximetry (%) 96 Oxygen Delivery Method Room Air Intake Visit Reasons: f/u IGM Intake Note: Patient is here to follow up on IGM. Automotive Sales Professional Required: Yes Automotive Sales Professional Language: Data Base Administrator Name: ID # [id number] Information Interpreted: non-clinical & clinical Computer Networking Instructor Adjunct: Not Required per policy Accompanied by: Self / Same As Patient Allergies No Known Allergies Allergy (Verified 02/28/25 09:17) Medication List - Last Reconciled 02/28/25 by Franck Rossi PA-C cyclobenzaprine 5 mg PO BEDTIME PRN 30 days magnesium oxide 400 mg PO BEDTIME 30 days pantoprazole 20 mg PO QAM 90 days propranolol ER 60 mg PO BEDTIME 30 days riboflavin (vitamin B2) 400 mg PO DAILY 30 days rizatriptan take 1 tab at onset of headache; if no relief may repeat 1 tab after at least 2 hrs; max = 3 tabs/24 hr PO 21 days Tobacco use date assessed: 02/28/25 Dental Screening Dental Screen Date: 02/28/25 Did you have a dental visit in the last 12 months?: Yes Did you have a dental problem in the last 6 months where you did not have access to dental care?: No Was dental information given to patient?: Patient has dentist HPI f/u IGM HPI Details Patient is a 49-year-old Nauruan-speaking male here today for follow-up visit. Patient has a past medical history significant for migraine disorder, hyperlipidemia, plantar fasciitis. ---Concern> he reports over the last few weeks having intermittent left testicle pain particularly when going from sitting to a standing position. He denies any ejaculations or urinary issues. He is not note any masses on self testicular exam. .. Migraines: Patient continues with the p.r.n. use of rizatriptan with good effect. He has been having much less frequent severe migraines. Has followed up with Neurology and was started on muscle relaxer for his jaw and head pain. He reports the medications have been very helpful. .. Impaired glucose metabolism: Most recent A1c acceptable at 5.6 .. Hypertriglyceridemia: Most recent fasting lipid panel showing improved triglycerides. Has been working on lifestyle modifications. Unfortunately has not been able to be more physically active due to his continued right heel pain. .. Plantar fasciitis : He has gotten a shot in his plantar region which has resolved his chronic plantar pain. Laboratory Tests 07/10/22 08/25/24 02/28/25 08:41 08:23 08:52 Fasting Glucose 101 H 118 H Hgb A1c (Clinic) 5.6 Cholesterol 166 LDL Cholesterol, C alc 99 PSA Screen 0.61 PFSH Medical History Hypertriglyceridemia Migraine GERD (gastroesophageal reflux disease) Surgical History History of appendectomy History of repair of anterior cruciate ligament of right knee Family History Mother Hypertension Heart problem Father No problems noted. 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 1. Little interest or pleasure in doing things: not at all 2. Feeling down, depressed, or hopeless: not at all 3. Trouble falling or staying asleep, or sleeping too much: not at all 4. Feeling tired or having little energy: not at all 5. Poor appetite or overeating: not at all 6. Feeling bad about yourself - or that you are a failure or have let yourself or your family down: not at all 7. Trouble concentrating on things, such as reading the newspaper or watching television: not at all 8. Moving or speaking so slowly that other people could have noticed. Or the opposite - being so fidgety or restless that you have been moving around a lot more than usual: not at all 9. Thoughts that you would be better off or of hurting yourself in some way: not at all Total score: 0 Depression Screening Interpretation: Negative Depression Screening Done: Yes 11055 - PHQ-9 Billing: Yes Source: Developed by Drs. Don Wing, Alethea Joseph, Willy Otto and colleagues, with an educational claude from [employer]. Thrive Questionnaire Date Thrive assessed: 02/28/25 I am a: Parent/Caregiver What is your living situation today?: I have a steady place to live Within the past 12 months, did the food you bought not last and you didn't have the money to get more?: I choose not to answer this question Within the past 12 months, did you worry whether your food would run out before you got money to buy more?: Never true Do you have trouble paying for medicines?: No Do you have trouble getting transportation to medical appointments?: No Do you have trouble paying your heating and electricity bill?: No Do you have trouble taking care of your child, family member or friend?: No Do you have trouble with day-to-day activities such as bathing, preparing meals, shopping, managing finances, etc.?: No Are you currently unemployed and looking for a job?: No Are you interested in more education?: Yes THRIVE Score: 0 AUDIT C Alcohol Use Questionnaire (AUDIT-C) 1. How often do you have a drink containing alcohol?: Never Total Score: 0 PADILLA-7 AMB Questionnaire PADILLA-7 Date PADILLA - 7 assessed: 02/28/25 Feeling nervous, anxious, or on edge: 0 = Not at all Not being able to stop or control worryin = Not at all Worrying too much about different things: 0 = Not at all Trouble relaxin = Not at all Being so restless that it is hard to sit still: 0 = Not at all Becoming easily annoyed or irritable: 0 = Not at all Feeling afraid as if something awful might happen: 0 = Not at all Total PADILLA-7 score (0-4 normal; 5-9 mild; 10-14 moderate; 15-21 severe): 0 Source: Developed by Alethea Guerrero Kurt Kroenke and colleagues, with an educational claude from [employer]. PADILLA-7 Assessment Billing PADILLA-7 Assessment Tool: PADILLA-7 Assessment 39906 Review of Systems Const Denies headache(s) Eyes Denies loss of vision ENT Denies vertigo, Denies dizziness, Denies headache(s) and Denies sore throat Card Denies chest pain, Denies leg edema and Denies lightheadedness Resp Denies cough, Denies hemoptysis and Denies wheezing GI Denies abdominal pain, Denies melena, Denies constipation, Denies diarrhea and Denies vomiting Denies dysuria, Denies urinary frequency and Denies urinary urgency Musc Denies arthralgias, Denies joint swelling, Denies numbness and Denies tingling Neuro Denies Abnormal speech present, Denies behavioral changes, Denies vertigo, Denies dizziness, Denies headache(s), Denies loss of vision, Denies memory loss, Denies numbness and Denies tingling Psych Denies anxiety, Denies behavioral changes, Denies depression, Denies memory loss and Denies panic attacks Mark/Lymph Denies easy bleeding and Denies easy bruising Aller/Immun Denies wheezing Physical exam (Primary Care) Vital Signs: Last Vital Signs Temp 97.3 F 02/28/25 08:53 Pulse 86 02/28/25 08:53 BP 130/78 02/28/25 08:53 Pulse Ox 96 02/28/25 08:53 Oxygen Delivery Method Room Air 02/28/25 08:53 BMI result Body Mass Index 32.6 Tobacco/Smoking Status: Tobacco use Status Tobacco use date assessed 02/28/25 02/28/25 09:00 Patient Tobacco Use Status Never used Tobacco 02/28/25 08:51 Tobacco use type Cigarette 02/28/25 08:51 e-Cigarette/Vaping Use Never Used 02/28/25 08:51 PHQ-9: PHQ-9 Score PHQ-9: Total score 0 02/28/25 09:19 Depression Screening Interpretation: Negative Thrive Assessment: Date of Thrive Assessment Date Thrive assessed 02/28/25 02/28/25 08:51 Const General: healthy appearing, no acute distress, alert and awake Nutritional Appearance: well nourished Orientation/consciousness: oriented to person, oriented to place and oriented to time HENMT Ears: TM's normal bilaterally General nose exam: Normal nasal mucous membranes and turbinates present Eyes Conjunctivae: conjunctivae normal Sclerae: sclerae normal Pupils: Equal, round and reactive pupils present Neck Neck: Yes no lymphadenopathy and Yes no JVD Thyroid: Thyroid normal Carotids: no bruits Resp Effort & Inspection: normal respiratory effort and not tachypneic Auscultation: no crackles, no rales, no rhonchi and no wheezes Cardio Rate: regular rate Rhythm: regular rhythm Heart sounds: no murmurs and normal S1 and S2 GI Palpation (GI): Soft to palpation, nontender, no hepatomegaly and no splenomegaly Auscultation: normal bowel sounds Skin General skin exam: no rashes or lesions noted and dry skin Neuro General: oriented to person, oriented to place and oriented to time Cranial nerves: Yes Equal, round and reactive pupils present Speech: No Abnormal speech present Gait exam (Neuro): Normal gait present Motor exam (neuro): no tremor noted Extrem Right upper extremity: full ROM Left upper extremity: full ROM Right lower extremity: full ROM; no edema Left lower extremity: full ROM; no edema Psych Mental Status: mental status grossly normal Speech and movement: Normal speech and movement present Affect: normal affect Attitude: cooperative Thought process: Normal thought process present Results AMB Hemoglobin A1c AMB Hemoglobin A1c 5.6 % Last Edit by ALEXIS Joya on 02/28/25 09:04 Results Reviewed Results Reviewed: Laboratory Last Values Hgb A1c (Clinic) 5.6 % (4.0-6.0) 02/28/25 08:52 Coding Level of Care Code Est Pt Level 4 (16802) Diagnoses Impaired glucose metabolism R73.09 Migraine with aura and with status migrainosus, not intractable G43.101 Intractability: not intractable Migraine type: with aura Status migrainosus presence: with status migrainosus Hypertriglyceridemia E78.1 Left testicular pain N50.812 Additional Codes PHQ-9 - 53721 - PHQ-9 Billing: Yes ([id number]) PADILLA-7 Assessment Billing - PADILLA-7 Assessment Tool: PADILLA-7 Assessment 74730 ([id number]) Assessment & Plan Assessment & Plan (1) Impaired glucose metabolism: Code(s): R73.09 - Other abnormal glucose Category: Medical Plan: Has a history of elevated fasting blood sugars, today's A1c of 5.6. He has been trying to make lifestyle and dietary modifications.. . Will recheck fasting blood sugar in 6 months. (2) Migraine: Code(s): G43.909 - Migraine, unspecified, not intractable, without status migrainosus Category: Medical Qualifiers: Intractability: not intractable Migraine type: with aura Status migrainosus presence: with status migrainosus Qualified Code(s): G43.101 - Migraine with aura, not intractable, with status migrainosus Plan: Patient reports his migraines has been well controlled with maintenance medication and only really limited use of rizatriptan. (3) Hypertriglyceridemia: Code(s): E78.1 - Pure hyperglyceridemia Category: Medical Plan: Patient's most recent lipid panel showing excellent control of his total cholesterol and triglycerides. Will continue with lifestyle and dietary modifications. Goal triglycerides to remain below 150 (4) Left testicular pain: Code(s): N50.812 - Left testicular pain Category: Medical Plan: As per HPI patient has been experiencing intermittent left testing in her pain. Will send for scrotal ultrasound evaluate for varicocele or spermatocele that could be causing structural change and pain. Orders: Orders US scrotum 02/28/25 N50.812 - Left testicular pain Hemoglobin A1c 02/28/25 R73.09 - Other abnormal glucose Comprehensive [place]. Panel Fast 02/28/25 E78.1 - Pure hyperglyceridemia Prostate Specific Antigen Scr 02/28/25 E78.1 - Pure hyperglyceridemia, Z12.5 - Encounter for screening for malignant neoplasm of prostate AMB Hemoglobin A1c 02/28/25 R73.09 - Other abnormal glucose Lipid Panel 02/28/25 E78.1 - Pure hyperglyceridemia Complete Blood Count no Diff 02/28/25 E78.1 - Pure hyperglyceridemia Medications: Refilled magnesium oxide may hold for loose stools 400 mg PO BEDTIME 30 tabs 6RF 30 days
[2025-02-28 08:53] VITALS: BP 130/78; PULSE 86; TEMP 36.3; O2SAT 96; BMI 32.6
--- OUTSIDE RECORDS SUMMARY | 2025-02-28 09:04 | XMS_ITS | Patient Health Record ---
Demographics Address [address] [place] [address] Mobile Email Address Preferred Language es Marital Status Yazidi Affiliation Unknown Race Unknown Additional Race(s) Other Race Ethnic Group or Author Organization [facility] [place] Address [address] [place] [address] Care Team Providers Care Warehouse Man Name Role Phone Fadi Ogden Unavailable [phone] Allergies No Known Allergies Reason For Referral No Information Social History Tobacco Use: Social History Observation Description Date Details (start date - stop date) Never Smoker NA - NA Tobacco Use/Smoking Question Answer Notes Are you a: nonsmoker Additional Findings: Tobacco Non-User Current no n-smoker Alcohol Screen Question Answer Notes Did you have a drink containing alcohol in the p ast year? No Points 0 Interpretation Negative Tobacco use other than smoking: Question Answer Notes Are you an other tobacco user? No Problems Problem Type SNOMED Code ICD Code Onset Dates Problem Status W/U Status Risk Notes Problem Plantar fascial fibromatosis (91177965) Plantar fascial fibromatosis (M72.2) Active confirmed Acute problem, Complicated w/ Multiple Tx Options(4) Vital Signs Height 5ft 5 in in 04/25/2024 Weight 195 lbs 04/25/2024 BMI 32.45 kg/m2 04/25/2024 Procedures Procedure Date Ordered Date Performed Result Body Sit e 54979,[id number]-WGY TENDON SHEATH/LIGAMENT 04/25/2024 N/A Encounters Encounter Location Date Provider Diagnosis [facility] [place] [address] [place] [id number] 04/25/2024 Fadi Ogden [facility] M72.2 [facility] [address] [address] [place] [address] 04/25/2024 Fadi Ogden Assessments Encounter Date Diagnosis (ICD Code) Assessment Notes Treatment Notes Treatment Clinical Notes Section Notes 04/25/2024 Plantar fasciitis (ICD-10 - M72.2) Resistant to previous conservative treatment Patient Educated with: RICE THERAPY.pdf (RICE THERAPY.pdf) Patient Educated with: INJECTIONTHERA PY.pdf (INJECTIONTHER APY.pdf) Plan Of Treatment Pending Test Test Name Order Date X ray : Foot, left 3V 09/22/2022 [id number] TENDON SHEATH/LIGAMENT 0 04/25/2024 Insurance Providers Payer Name Payer Address Payer Phone Subscriber Number Group Number Insured Name Patient Relationship to Insured Coverage Start Date Coverage End Date [facility] [employer] [address] [place] [address] [phone] [id number] Scar Vogt Self - patient is the insured Medical (General) History Surgical History Surgery Date(Month/Year) knee surgery, right 11/12/20
== END 2025-02-28 09:35 | disposition home or self-care (01) ==
LOC: HO.HMCH 08:42
PROVIDERS: PCP Physician Assistant; Visit Provider Physician Assistant
DX: R73.09 Other abnormal glucose (principal); G43.101 Migraine with aura, not intractable, with status migrainosus; E78.1 Pure hyperglyceridemia; N50.812 Left testicular pain

== ENCOUNTER → 2025-02-28 08:41 | Outpatient (BNVA) | payer BC, SELFPAY | PROVIDERS: PCP Physician Assistant; Visit Provider Physician Assistant | DX: M72.2 Plantar fascial fibromatosis (principal); E78.5 Hyperlipidemia, unspecified; N50.819 Testicular pain, unspecified; R73.01 Impaired fasting glucose; E78.1 Pure hyperglyceridemia; R73.09 Other abnormal glucose; G43.101 Migraine with aura, not intractable, with status migrainosus; N50.812 Left testicular pain | CPT/HCPCS: 83036; 96127 ==

== ENCOUNTER 2025-04-05 16:12 | Outpatient (REF) | payer BC, SELFPAY ==
--- NOTE | ~2025-04-05 | US_ITS ---
CLINICAL HISTORY: N50.812 - Left testicular pain US Scrotum with Doppler Comparison: None provided Findings: Right testicle normal echotexture, 4.1 x 2.1 x 2.7 cm. Left testicle normal echotexture, 3.6 x 2.0 x 2.6 cm. Color Doppler and arterial/venous spectral tracings of both testicles within normal limits. Right epididymal cyst measuring 5 mm. No hydroceles. Left-sided varicocele. IMPRESSION: 1. No acute process. 2. Left-sided varicocele. This document has been electronically signed by: Charles Limon MD on 04/05/2025 16:47:13
--- OUTSIDE RECORDS SUMMARY | 2025-04-05 16:15 | XMS_ITS | Patient Health Record ---
Demographics Address [address] [place] [address] Mobile Email Address Preferred Language es Marital Status Hoahaoism Affiliation Unknown Race Unknown Additional Race(s) Other Race Ethnic Group or Author Organization [facility] [place] [place] Address [address] [place] [address] Care Team Providers Care Cpht Name Role Phone Fadi Ogden Unavailable [phone] Allergies No Known Allergies Reason For Referral [...] Status Risk Notes Problem Plantar fascial fibromatosis (57260698) Plantar fascial fibromatosis (M72.2) Active confirmed Acute problem, Complicated w/ Multiple Tx Options(4) Vital Signs Height 5ft 5 in in 04/25/2024 Weight 195 lbs 04/25/2024 BMI 32.45 kg/m2 04/25/2024 Procedures Procedure Date Ordered Date Performed Result Body Sit e 15083,P2771-ADY TENDON SHEATH/LIGAMENT 04/25/2024 N/A Encounters Encounter Location Date Provider Diagnosis [facility] [place] [address] [place] [phone] 04/25/2024 Fadi Ogden [facility] M72.2 [facility] [address] [address] [place] [address] 04/25/2024 Fadi Ogden Assessments Encounter Date Diagnosis (ICD Code) Assessment Notes Treatment Notes Treatment Clinical Notes Section Notes 04/25/2024 Plantar fasciitis (ICD-10 - M72.2) Resistant to previous conservative treatment Patient Educated with: RICE THERAPY.pdf (RICE THERAPY.pdf) Patient Educated with: INJECTIONTHERA PY.pdf (INJECTIONTHER APY.pdf) Plan Of Treatment Pending Test Test Name Order Date X ray : Foot, left 3V 09/22/2022 [id number] TENDON SHEATH/LIGAMENT 0 04/25/2024 Insurance Providers Payer Name Payer Address Payer Phone Subscriber Number Group Number Insured Name Patient Relationship to Insured Coverage Start Date Coverage End Date [facility] All Others [address] [place] [address] [phone] [id number] Scar Vogt Self - patient is the insured Medical (General) History Surgical History Surgery Date(Month/Year) knee surgery, right 11/12/20
== END 2025-04-05 16:13 | disposition home or self-care (01) ==
LOC: HO.US 16:12
PROVIDERS: PCP Physician Assistant; Visit Provider Physician Assistant
DX: N50.812 Left testicular pain (principal)
CPT/HCPCS: 76870

== ENCOUNTER → 2025-04-05 16:30 | Outpatient (BNV) | payer BC, SELFPAY | PROVIDERS: PCP Physician Assistant; Visit Provider Radiology Diagnostic Radiology | DX: N50.812 Left testicular pain (principal) | CPT/HCPCS: 76870 ==

== ENCOUNTER 2025-04-12 13:29 | Outpatient (AMB) | payer BC, SELFPAY ==
--- OUTSIDE RECORDS SUMMARY | 2025-04-12 14:04 | XMS_ITS | Patient Health Record ---
Demographics Address [address] [place] [address] Mobile Email Address Preferred Language es Marital Status Hoahaoism Affiliation Unknown Race Unknown Additional Race(s) Other Race Ethnic Group or Author Organization [facility] Reynaldo barrios [place] Address [address] [place] [address] Care Team Providers Care Anthropology And Archeology Instructor Name Role Phone Fadi Ogden Unavailable [phone] Allergies No Known Allergies Reason For Referral [...] Status Risk Notes Problem Plantar fascial fibromatosis (08392222) Plantar fascial fibromatosis (M72.2) Active confirmed Acute problem, Complicated w/ Multiple Tx Options(4) Vital Signs Height 5ft 5 in in 04/25/2024 Weight 195 lbs 04/25/2024 BMI 32.45 kg/m2 04/25/2024 Procedures Procedure Date Ordered Date Performed Result Body Sit e 81762,X5055-KEP TENDON SHEATH/LIGAMENT 04/25/2024 N/A Encounters Encounter Location Date Provider Diagnosis [facility] [place] [address] [place] [phone] 04/25/2024 Fadi Ogden [facility] M72.2 [facility] [address] [address] [place] [address] 04/25/2024 Fadi Ogden Assessments Encounter Date Diagnosis (ICD Code) Assessment Notes Treatment Notes Treatment Clinical Notes Section Notes 04/25/2024 Plantar fasciitis (ICD-10 - M72.2) Resistant to previous conservative treatment Patient Educated with: RICE THERAPY.pdf (RICE THERAPY.pdf) Patient Educated with: INJECTIONTHERA PY.pdf (INJECTIONTHER APY.pdf) Plan Of Treatment Pending Test Test Name Order Date X ray : Foot, left 3V 09/22/2022 [id number] TENDON SHEATH/LIGAMENT 0 04/25/2024 Insurance Providers Payer Name Payer Address Payer Phone Subscriber Number Group Number Insured Name Patient Relationship to Insured Coverage Start Date Coverage End Date [facility] All Others [address] [place] [address] [phone] [id number] Scar Vogt Self - patient is the insured Medical (General) History Surgical History Surgery Date(Month/Year) knee surgery, right 11/12/20
[2025-04-12 14:19] VITALS: BP 133/88; PULSE 76; O2SAT 97; BMI 32.7
--- NOTE | 2025-04-12 14:19 | A.OFFVIS_ITS ---
Vital Signs 04/12/25 14:19 Height 5 ft 5 in Weight 196 lb 6 oz BMI 32.7 BP 133/88 Blood Pressure Location Rt brachial Position Sitting Pulse 76 Pulse Source Pulse Oximeter Pulse Oximetry (%) 97 Oxygen Delivery Method Room Air Intake Visit Reasons: Follow up 6mo Intake Note: Patient presents follow up Migraine. Patient hasn't had any more migraines but dies get tired a lot. Building Operator Required: Yes Building Operator Services: Building Operator Present Building Operator Name: Hermelindo [id number] Information Interpreted: non-clinical & clinical Accompanied by: Self / Same As Patient Allergies No Known Allergies Allergy (Verified 04/12/25 14:22) HPI Comments Details: 49-yr-old female presents for f/u visit for migraine and bruxism Pt denies any significant interval medical changes. Patient states he has not had a migraine attack since his last visit here. However, the back of his head neck can feel tired, tense. He denies radiating pain from his neck, weakness He notes that at work he is often positioned with his head and neck in flexion or extension. He works 10 hour days. He denies any structured physical activity or exercise. He has not had his B2 or magnesium recently. He still finds cyclobenzaprine to be helpful. He has not needed to use the rizatriptan recently, however is usually effective. Baseline headache characteristics: Severe, Left sided pressure, pulsating, a/w photophobia, nausea, dizziness, activity intolerance, left eye watery. 05/05/2024, MR/MR head/brain wo/w con: 1. A few punctate nonenhancing white matter T2 hyperintensities are seen in the cerebral hemispheres which are nonspecific findings. 2. No intracranial mass lesion, pathologic enhancement, space-occupying process, mass effect, hemorrhage, or hydrocephalus. 3. Minor mucosal thickening in the ethmoid complex and sinusoidal nasal septal deviation. [facility] Medical History Hypertriglyceridemia Migraine GERD (gastroesophageal reflux disease) Surgical History History of appendectomy History of repair of anterior cruciate ligament of right knee Family History Mother Hypertension Heart problem Father No problems noted. 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 Bilateral Spurling elicits nonradiating paraspinal tenderness/tightness Mild forward head and shoulder posture-which patient can correct upon cuing General: patient oriented x3 Cranial nerves: Yes CN's II-XII intact bilaterally Cognition (Neuro): normal cognition Psych Appearance: grossly normal Mental Status: mental status grossly normal Speech and movement: Normal speech and movement present Affect: normal affect Attitude: cooperative Assessment & Plan Assessment & Plan (1) Migraine: Code(s): G43.909 - Migraine, unspecified, not intractable, without status migrainosus Category: Medical Qualifiers: Migraine type: with aura Status migrainosus presence: with status migrainosus Intractability: not intractable Qualified Code(s): G43.101 - Migraine with aura, not intractable, with status migrainosus (2) Exertional headache: Code(s): G44.84 - Primary exertional headache Category: Medical Plan 05/05/2024 brain MRI w/wo report and images with patient: No acute findings. No findings to account for patient's symptoms. There were a few punctuate n onenhancing white matter T2 hyperintensities in the cerebral hemispheres, which are nonspecific- likely changes of microangiopathic or migraine vasculopathy. Patient encouraged to optimize his overall cardiovascular and metabolic risk factors, through lifestyle modifications, such as eating well rounded healthy diet, engaging in regular physical activity, and maintaining a regular sleep routine. For cervicalgia, more occipital tightness: Continue cyclobenzaprine 5 mg q.h.s. Resume magnesium 400 mg at bedtime Encouraged patient to increase regular physical exercise, such as by joining a local gym. If ineffective, we will refer to PT ? For overall headache management: Continue to optimize good self-care, including but not limited to maintaining a healthy diet, adequate fluid intake, adequate sleep, and engaging in regular physical activity. For headache triggers: Track headaches Light sensitivity tips: Patient may try blue light filtering glasses, green glasses, green light therapy.. Avoid wearing sunglasses inside- but do wear upon exiting work and going outside ? For bruxism: Continue Cyclobenzaprine 5 mg qhs. Continue wearing mouth guard qhs. ? For acute headache treatment: Continue Rizatriptan prn. Continue Excedrin use. Previous acute migraine medication trials: None other Acute migraine medication contraindications: None ? For headache prevention medication: Restart Riboflavin 400mg daily in the morning Restart Magnesium 400mg daily at bedtime Previous migraine prevention medication trials: Propranolol 60 mg ER- ineffective. Migraine prevention medication contraindications: None at this time ? Pt to follow-up in 6 months or sooner prn. Coding Level of Care Code Est Pt Level 4 (75507) Diagnoses Migraine with aura and with status migrainosus, not intractable G43.101 Migraine type: with aura Status migrainosus presence: with status migrainosus Intractability: not intractable Exertional headache G44.84
== END 2025-04-12 14:39 | disposition home or self-care (01) ==
LOC: HO.HSMS 13:30
PROVIDERS: PCP Physician Assistant; Visit Provider Nurse Practitioner Family
DX: G43.101 Migraine with aura, not intractable, with status migrainosus (principal); G44.84 Primary exertional headache
CPT/HCPCS: 99214

== ENCOUNTER 2025-06-20 04:25 | Emergency (ER) | payer BC, SELFPAY ==
[2025-06-20] VITALS (10 sets, daily range): BP systolic 121–150; BP diastolic 81–96; PULSE 65–78; RESP 16–18; TEMP 36.4–36.6; O2SAT 89–98; BMI 33.0
--- NOTE | ~2025-06-20 | CT_ITS ---
CLINICAL HISTORY: left renal colic CT abdomen and pelvis without contrast Comparison: None provided Findings: No consolidation or effusion. Several tiny nonobstructing calculi are seen in the mid to lower poles of both kidneys. There is mild left hydroureteronephrosis with mild perinephric and periureteral inflammatory changes. The gallbladder in the rest of the solid organs are unremarkable. No bowel obstruction, pneumoperitoneum, or pneumatosis. Pelvic contents unremarkable. Normal appendix. No acute fracture. A 3.4 mm calculus is seen at the left ureterovesicular junction. IMPRESSION: Nephrolithiasis with left-sided obstructive uropathy associated with a 3.4 mm obstructing calculus at the left ureterovesicular junction. This document has been electronically signed by: Alexys Nguyen MD on 06/20/2025 06:57:17
[2025-06-20 04:59] LABS: Hematocrit 44.6 % (42.0-52.0); Hemoglobin 15.1 g/dl (14.0-18.0); Imm Gran Abs Auto 0.07 X10*3/uL (0.00-0.03); Imm Gran Pct Auto 0.6 % (0.0-0.4); Lymphocytes Absolute Auto 5.5 X10*3/uL (1.2-4.9); MANUAL DIFF FLAG SCAN; Mean Corpuscular HGB Conc 33.9 g/dl (31.0-36.0); Mean Corpuscular Hemoglobin 28.4 pg (27.0-33.0); Mean Corpuscular Volume 84.0 fL (80.0-98.0); NRBC Abs Auto 0.000 X10*3/uL (0.0-0.012); NRBC Pct Auto 0.0 /100WBC (0.0-0.2); Platelet Count 260 X10*3/uL (160-400); Red Blood Count 5.31 X10*6/uL (4.60-5.80); SCAN SMEAR FLAG 1; White Blood Count 12.0 X10*3/uL (4.8-10.8)
[2025-06-20 05:01] LABS: Appearance Urine Clear; Glucose Urine UA Negative (Negative); PH 5.0 (5.0-9.0); Specific Gravity - Urine 1.025 (1.005-1.025); UMIC TRIGGER UACC YES
[2025-06-20 05:16] LABS: Alanine Aminotransferase 28 U/L (0-40); Albumin Level 4.4 g/dL (3.5-5.0); Alkaline Phosphatase 108 U/L (39-117); Anion Gap 12 (12-20); Aspartate Amino Transferase 23 U/L (5-37); Blood Urea Nitrogen 20 mg/dL (9-16); Calcium 9.0 mg/dL (8.4-10.2); Carbon Dioxide 27 mmol/L (22-29); Chloride 107 mmol/L (96-108); Creatinine Clr Calc Pharmacy 77.6; Estimated Glomerular Filt Rate > 60; Potassium 4.1 mmol/L (3.3-5.1); Sodium 142 mmol/L (135-145); Total Protein 7.2 g/dL (6.5-8.0)
--- NOTE | 2025-06-20 05:37 | ED.GENADULT ---
HPI - General Adult General Chief complaint: Abdominal Pain Stated complaint: back pain Time Seen by Provider: 06/20/25 05:13 Source: patient Limitations: language barrier History of Present Illness ED Provider: Kortney Dc PA-C HPI narrative: 50-year-old male with a history of kidney stones, GERD, migraine who presents with the acute onset left flank pain. Patient states he woke this morning at 4 a.m. with severe mid left flank pain, with radiation to the groin. Associated burning with the urination, nausea vomiting. Denies fever. Related Data Previous Rx's ?Medication ?Instructions ?Recorded propranolol 60 mg capsule,24 60 mg PO BEDTIME 30 days #30 caps 02/24/24 hr,extended release cyclobenzaprine 5 mg tablet 5 mg PO BEDTIME PRN bruxism 10/14/24 days #60 tabs riboflavin (vitamin B2) 400 mg 400 mg PO DAILY 30 days #30 tabs 10/14/24 tablet rizatriptan 10 mg tablet See Rx Instructions PO .COMPLEX 10/14/24 days #12 tabs pantoprazole 20 mg tablet,delayed 20 mg PO QAM 90 days #90 tabs 11/17/24 release magnesium oxide 400 mg (241.3 mg 400 mg PO BEDTIME 30 days #30 tabs 02/28/25 magnesium) tablet morphine 15 mg immediate release 15 mg PO Q6H PRN pain #10 tabs 06/20/25 tablet ondansetron 4 mg disintegrating 4 mg PO Q8H PRN nausea and 06/20/25 tablet vomiting #20 tabs Allergies Allergy/AdvReac Type Severity Reaction Status Date / Time No Known Allergies Allergy Verified 06/20/25 04:34 Review of Systems Review of Systems: Yes all other systems are reviewed and are negative Constitutional: Constitutional: Denies fatigue and Denies fever(s) Cardiovascular: Cardiovascular: Denies chest pain and Denies dyspnea Respiratory: Respiratory: Denies dyspnea Gastrointestinal: Gastrointestinal: Reports abdominal pain, Reports nausea and Reports vomiting Genitourinary: Genitourinary: Reports dysuria and Reports flank pain Endocrine: Endocrine: Denies fatigue PMFSH Past Medical History Attestation statement: The following information was validated with the patient. Medical History Hypertriglyceridemia Migraine GERD (gastroesophageal reflux disease) Surgical History History of appendectomy History of repair of anterior cruciate ligament of right knee Family History Family History Mother Hypertension Heart problem Father No problems noted. 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 - [employer] Current occupational exposures/hazards: No Cognitive needs: No Hearing needs: No Vision needs: No Physical Exam ED Vital Signs: Vital Signs - 24 hr 06/20/25 04:31 06/20/25 05:22 06/20/25 07:38 Temperature 97.5 F 97.5 F Pulse Rate 76 76 Respiratory Rate 18 18 16 Blood Pressure 150/96 H 150/96 H Pulse Oximetry 98 98 Oxygen Delivery Method Room Air Room Air Oxygen Flow Rate 06/20/25 07:40 06/20/25 07:43 06/20/25 08:17 Temperature 97.6 F Pulse Rate 65 69 78 Respiratory Rate 16 18 Blood Pressure 133/81 137/87 Pulse Oximetry 93 98 96 Oxygen Delivery Method Room Air Nasal Cannula Oxygen Flow Rate 2 06/20/25 08:40 06/20/25 08:48 06/20/25 08:48 Temperature Pulse Rate Respiratory Rate 16 Blood Pressure 141/89 H Pulse Oximetry 89 L 96 Oxygen Delivery Method Room Air Nasal Cannula Oxygen Flow Rate 2 06/20/25 10:48 06/20/25 13:43 Temperature 97.9 F 97.9 F Pulse Rate 77 71 Respiratory Rate 16 16 Blood Pressure 121/81 127/82 Pulse Oximetry 97 96 Oxygen Delivery Method Nasal Cannula Room Air Oxygen Flow Rate 2 BMI result Body Mass Index 33.0 Const Other: Alert, ill-appearing actively vomiting appears very uncomfortable Orientation/consciousness: patient oriented x3 Resp Effort & Inspection: normal respiratory effort Cardio Other: Normal peripheral perfusion General: Yes no CVA tenderness Back/Spine/Pelvis Back: no CVA tenderness Skin Other: Warm dry no rash Neuro General: patient oriented x3, gait normal, no focal motor deficits and CN's II-XI intact bilaterally Psych Other: Cooperative Course Course Course Narrative: repeat pain control with IV - will continue to monitor, UA normal, Cr normal once pain improved can follow up with outpatient urology DARBY Reevaluation(s) Reevaluation #1: despite IVF, multiple rounds of IV pain control he cannot tolerate PO and is still having pain, reached out to Dr. Irma PASTOR 06/20/25 944am Reevaluation #2: Dr. Irma rivas - NPO, admit to medicine for pain control should pass this hospitalist to admit DARBY 06/20/25 955am to go to OR with Dr. Solis Reevaluation #3: no pain and passed stone, visualized in specimen cup feels better ready go to home can follow up as outpatient Urology - Dr. Amilcar rivas Medications Administered Discontinued Medications Generic Name Dose Route Start Last Admin Trade Name Roloq PRN Reason Stop Dose Admin Diazepam 2.5 mg 06/20/25 08:33 06/20/25 08:50 Diazepam 10 Mg/2 Ml Cartridge IVPUSH 06/20/25 08:34 2.5 mg STAT STA Administration Hydromorphone HCl 0.5 mg 06/20/25 07:23 06/20/25 07:38 Hydromorphone Hcl 0.5 Mg/0.5 Ml Syringe IVPUSH 06/20/25 07:24 0.5 mg ONCE ONE Administration Protocol Sodium Chloride 1,000 mls @ 999 mls/hr 06/20/25 05:15 06/20/25 06:15 Ns IV 06/20/25 06:15 Infused .Q1H1M JOYCELYN Infusion Acetaminophen 1,000 mg in 100 mls @ 400 mls/hr 06/20/25 08:33 06/20/25 09:37 Ofirmev IV 06/20/25 08:47 Infused ONCE ONE Infusion Sodium Chloride 1,000 mls @ 999 mls/hr 06/20/25 08:42 06/20/25 09:52 Ns IV 06/20/25 09:42 Infused .Q1H1M ONE Infusion Ketorolac Tromethamine 15 mg 06/20/25 05:13 06/20/25 05:21 Ketorolac Tromethamine 15 Mg/Ml Vial IVPUSH 06/20/25 05:14 15 mg ONCE ONE Administration Morphine Sulfate 4 mg 06/20/25 05:13 06/20/25 05:22 Morphine Sulfate 4 Mg/Ml Cartridge IVPUSH 06/20/25 05:14 4 mg ONCE ONE Administration Protocol Morphine Sulfate 15 mg 06/20/25 07:02 06/20/25 07:37 Morphine Sulfate Immed Release 15 Mg Tablet PO 06/20/25 07:03 15 mg ONCE ONE Administration Ondansetron HCl 4 mg 06/20/25 05:13 06/20/25 05:21 Ondansetron Hcl 4 Mg/2 Ml Vial IVPUSH 06/20/25 05:14 4 mg ONCE ONE Administration Ondansetron HCl 4 mg 06/20/25 09:52 06/20/25 10:05 Ondansetron Hcl 4 Mg/2 Ml Vial IVPUSH 06/20/25 09:53 4 mg ONCE ONE Administration Tamsulosin HCl 0.4 mg 06/20/25 07:02 06/20/25 07:37 Tamsulosin Hcl 0.4 Mg Capsule PO 06/20/25 07:03 0.4 mg ONCE ONE Administration Medical Decision Making Medical Decision Making MDM Narrative: 50-year-old male with a history of kidney stones, GERD, migraine who presents with the acute onset left flank pain. Patient states he woke this morning at 4 a.m. with severe mid left flank pain, with radiation to the groin. Associated burning with the urination, nausea vomiting. Denies fever. Problem: Kidney stones History: Per patient I have considered the following differential diagnoses: Torsion, renal colic, pyelonephritis, urinary tract infection Plan: Patient here with likely renal colic given acute onset of symptoms and distribution of pain. We will be obtaining a non-con CT scan, giving fluid, Toradol morphine and Zofran. Screening labs including urinalysis were already collected. Doubtful to be pyelonephritis given acute onset of symptoms, and he has no CVA tenderness. This is not torsion, he does have radiation to the groin, however no complaint of testicle pain or swelling. I have independently reviewed the following tests: Labs: Slight leukocytosis, not anemic, no electrolyte abnormality, urine not infected passing hematuria CT abdomen and pelvis: Differential Diagnosis Differential Diagnoses: The differential diagnosis associated with the presentation includes See medical decision-making Admission/Observation Consideration of admission/observation: Escalation of care including admission/observation considered Not applicable Lab Data MDM Lab Attestation statement: I reviewed the patient's lab results. 06/20/25 04:52 06/20/25 04:52 Labs: Lab Results 06/20/25 Range/Units 04:52 WBC 12.0 H (4.8-10.8) X10*3/uL RBC 5.31 (4.60-5.80) X10*6/uL Hgb 15.1 (14.0-18.0) g/dl Hct 44.6 (42.0-52.0) % MCV 84.0 (80.0-98.0) fL MCH 28.4 (27.0-33.0) pg MCHC 33.9 (31.0-36.0) g/dl RDW 14.3 (11.0-16.0) % Plt Count 260 (160-400) X10*3/uL MPV 9.3 L (9.4-12.4) fL Immature Gran % (Auto) 0.6 H (0.0-0.4) % Neut % (Auto) 41.6 L (45-73) % Lymph % (Auto) 45.9 H (20-40) % [place] % (Auto) 8.9 (2-11) % Eos % (Auto) 2.6 (0-4) % Baso % (Auto) 0.4 (0-2) % Lymph # (Auto) 5.5 H (1.2-4.9) X10*3/uL [place] # (Auto) 1.1 (0.1-1.2) X10*3/uL Eos # (Auto) 0.3 (0.0-0.4) X10*3/uL Baso # (Auto) 0.1 (0.0-0.2) X10*3/uL Abs Immat Gran (auto) 0.07 H (0.00-0.03) X10*3/uL Absolute Neuts (auto) 5.0 (2.0-8.3) x10*3/uL Absolute Nucleated RBC 0.000 (0.0-0.012) X10*3/uL Nucleated RBC % (auto) 0.0 (0.0-0.2) /100WBC Smear Tech's Comments VERIFIED Sodium 142 (135-145) mmol/L Potassium 4.1 (3.3-5.1) mmol/L Chloride 107 (96-108) mmol/L Carbon Dioxide 27 (22-29) mmol/L Anion Gap 12 (12-20) BUN 20 H (9-16) mg/dL Creatinine 1.20 (0.5-1.4) mg/dL Estim Creat Clear Calc 77.6 Estimated GFR > 60 Random Glucose 123 H (60-115) mg/dL Calcium 9.0 D (8.4-10.2) mg/dL Total Bilirubin 0.5 (0.0-1.0) mg/dL AST 23 (5-37) U/L ALT 28 (0-40) U/L Alkaline Phosphatase 108 (39-117) U/L Total Protein 7.2 (6.5-8.0) g/dL Albumin 4.4 (3.5-5.0) g/dL Urine Color Yellow Urine Appearance Clear Urine pH 5.0 (5.0-9.0) Ur Specific [place] 1.025 (1.005-1.025) Urine Protein Negative (Neg-Trace) mg/dL Urine Glucose (UA) Negative (Negative) mg/dL Urine Ketones Negative (Negative) mg/dL Urine Blood Moderate (2+) H (Negative) Urine Nitrite Negative (Negative) Ur Leukocyte Esterase Negative (Negative) Urine RBC 11-20 H (0-2) /HPF Urine WBC 0-5 (0-5) /HPF Ur Squamous Epith Cells 0-2 (0-2) /HPF Urine Bacteria None Seen (None Seen) Hyaline Casts 3-5 (0-2) /LPF Radiology Impression Discussion of test interpretation with radiology: I have reviewed the radiologist's reading. Discharge Plan Discharge Clinical Impression: Acute left flank pain, Ureterolithiasis Patient Disposition: Home, Self-Care Instructions: Ureteral Stones (ED) Additional Instructions: labs and urine reassuring CT scan showed kidney stones in both kidneys but also a stone near the bladder you passed the stone in the ED monitor your symptoms for severe pain, fevers, unable to urinate, not able to eat or drink urology will follow up with you in about a month [facility] will be contacting you within 2 business days after being discharged from the Emergency Department. During this phone call, they will inform you when your follow up appointment will be scheduled. If you have not received a call from [facility] after 2 business days, please call the office at [phone]. Prescriptions: New morphine 15 mg tablet 15 mg PO Q6H PRN (Reason: pain) Qty: 10 0RF Rx Instructions: Partial Fill upon patient request. ondansetron 4 mg tablet,disintegrating 4 mg PO Q8H PRN (Reason: nausea and vomiting) Qty: 20 0RF No Action pantoprazole 20 mg tablet,delayed release (DR/EC) 20 mg PO QAM 90 Days Qty: 90 1RF propranolol 60 mg capsule,extended release 24 hr 60 mg PO BEDTIME 30 Days Qty: 30 3RF riboflavin (vitamin B2) 400 mg tablet 400 mg PO DAILY 30 Days Qty: 30 6RF rizatriptan 10 mg tablet See Rx Instructions PO .COMPLEX 21 Days Qty: 12 3RF Rx Instructions: take 1 tab at onset of headache; if no relief may repeat 1 tab after at least 2 hrs; max = 3 tabs/24 hr PO cyclobenzaprine 5 mg tablet 5 mg PO BEDTIME PRN (Reason: bruxism) 30 Days Qty: 60 6RF magnesium oxide 400 mg (241.3 mg magnesium) tablet 400 mg PO BEDTIME 30 Days Qty: 30 6RF Rx Instructions: may hold for loose stools Referrals: [facility] [Provider Group, Urology] Stand Alone Forms: Work/School Release Interventions: ED Discharge Assessment Last Done: 06/20/25 13:43 Discharge Date/Time: 06/20/25 13:45 Print Language: [place] Citizen
--- OUTSIDE RECORDS SUMMARY | 2025-06-20 05:53 | XMS_ITS | Patient Health Record ---
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 Name Role Phone Fadi Ogden Unavailable [phone] Allergies No Known Allergies Reason For Referral [...] Status Risk Notes Problem Plantar fascial fibromatosis (88321303) Plantar fascial fibromatosis (M72.2) Active confirmed Acute problem, Complicated w/ Multiple Tx Options(4) Plan Of Treatment Pending Test Test Name Order Date X ray : Foot, left 3V 09/22/2022 [id number] TENDON SHEATH/LIGAMENT 0 04/25/2024 Insurance Providers Payer Name Payer Address Payer Phone Subscriber Number Group Number Insured Name Patient Relationship to Insured Coverage Start Date Coverage End Date [employer] [address] [place] [address] [phone] [id number] Scar Vogt Self - patient is the insured Medical (General) History Surgical History Surgery Date(Month/Year) knee surgery, right 11/12/20
[2025-06-20] MEDS: Morphine Sulfate Immed Release 15 MG TABLET PO (07:37)
[2025-06-20] MEDS: diazePAM 10 MG/2 ML CARTRIDGE 2.5 MG IVPUSH (08:50)
--- NOTE | 2025-06-20 09:52 | PC.NURSE ---
Pt has been in pain most of Am since I started at 7am, Multiple analgesics given with only slight effect. Now pt is vomiting. Dr Rogel aware of both- Vibrator Operator obtained and pt states he is not comfortable enough to manage pain at home.
--- NOTE | 2025-06-20 12:28 | P.CNUR_ITS ---
History of Present Illness Consult details Consult date: 06/20/25 Narrative: 50-year-old male with a history of kidney stones, GERD, migraine who presents with the acute onset left flank pain. Patient states he woke this morning at 4 a.m. with severe mid left flank pain, with radiation to the groin. Associated burning with the urination, nausea vomiting. Denies fever. CTAP--Nephrolithiasis with left-sided obstructive uropathy associated with a 3.4 mm obstructing calculus at the left ureterovesicular junction. Review of Systems 2 Review of Systems: Yes all other systems are reviewed and are negative Constitutional: Constitutional: Reports no additional constitutional complaints Eyes: Eyes: Reports no additional eye complaints ENT: Reports system reviewed and no additional complaints, except as documented Cardiovascular: Cardiovascular: Reports no additional cardiovascular complaints Respiratory: Respiratory: Reports no additional respiratory complaints Gastrointestinal: Gastrointestinal: Reports no additional gastrointestinal complaints Genitourinary: Genitourinary: Reports as per HPI Musculoskeletal: Musculoskeletal: Reports no additional musculoskeletal complaints Integumentary/Breasts: Skin/Breast: Reports system reviewed and no additional complaints, except as docu Neurologic: Reports system reviewed and no additional complaints, except as documented Psychiatric: Psychiatric: Reports no additional psychiatric complaints Endocrine: Endocrine: Reports no additional endocrine complaints Hematologic/Lymphatic: Hematologic/Lymphatic: Reports no additional hematologic/lymphatic complaints Allergic/Immunologic: Allergic/Immunologic: Reports no additional allergic/immunologic complaints PMFSH Past Medical History Medical History Hypertriglyceridemia Migraine GERD (gastroesophageal reflux disease) Family History Family History Mother Hypertension Heart problem Father No problems noted. Surgical History Surgical History History of appendectomy History of repair of anterior cruciate ligament of right knee 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 - [employer] Current occupational exposures/hazards: No Cognitive needs: No Hearing needs: No Vision needs: No Meds Allergies Allergy/AdvReac Type Severity Reaction Status Date / Time No Known Allergies Allergy Verified 06/20/25 04:34 Physical Exam 2 Vital Signs: Vital Signs: Last Vital Signs Temp 97.9 F 06/20/25 10:48 Pulse 77 06/20/25 10:48 Resp 16 06/20/25 10:48 BP 121/81 06/20/25 10:48 Pulse Ox 97 06/20/25 10:48 O2 Del Method Nasal Cannula 06/20/25 10:48 O2 Flow Rate 2 06/20/25 10:48 BMI result Body Mass Index 33.0 Const: General: healthy appearing, no acute distress and well developed O rientation/consciousness: patient oriented x3 HEENT: Head: Yes normocephalic and Yes atraumatic Eyes: Conjunctivae: conjunctivae normal Neck: Neck: Yes normal visual inspection Chest: Chest palpation & inspection: normal inspection of the chest Resp: Effort & Inspection: normal respiratory effort GI: Inspection: Yes normal to inspection : General: Yes CVA tenderness (left) Back/Spine/Pelvis: Back: CVA tenderness (left) Neuro: General: patient oriented x3 Psych: Appearance: grossly normal Affect: normal affect Results Labs 06/20/25 04:52 06/20/25 04:52 Labs: Abnormal lab results 06/20/25 Range/Units 04:52 WBC 12.0 H (4.8-10.8) X10*3/uL MPV 9.3 L (9.4-12.4) fL Immature Gran % (Auto) 0.6 H (0.0-0.4) % Neut % (Auto) 41.6 L (45-73) % Lymph % (Auto) 45.9 H (20-40) % Lymph # (Auto) 5.5 H (1.2-4.9) X10*3/uL Abs Immat Gran (auto) 0.07 H (0.00-0.03) X10*3/uL BUN 20 H (9-16) mg/dL Random Glucose 123 H (60-115) mg/dL Urine Blood Moderate (2+) H (Negative) Urine RBC 11-20 H (0-2) /HPF Short CBC 06/20/25 Range/Units 04:52 WBC 12.0 H (4.8-10.8) X10*3/uL Hgb 15.1 (14.0-18.0) g/dl Hct 44.6 (42.0-52.0) % Plt Count 260 (160-400) X10*3/uL BMP 06/20/25 04:52 Sodium 142 Potassium 4.1 Chloride 107 Carbon Dioxide 27 BUN 20 H Creatinine 1.20 Calcium 9.0 D Liver Function 06/20/25 Range/Units 04:52 Total Bilirubin 0.5 (0.0-1.0) mg/dL AST 23 (5-37) U/L ALT 28 (0-40) U/L Alkaline Phosphatase 108 (39-117) U/L Albumin 4.4 (3.5-5.0) g/dL Urine 06/20/25 Range/Units 04:52 Urine Color Yellow Urine Appearance Clear Urine pH 5.0 (5.0-9.0) Ur Specific [place] 1.025 (1.005-1.025) Urine Protein Negative (Neg-Trace) mg/dL Urine Glucose (UA) Negative (Negative) mg/dL All other labs normal. Imaging Abdomen CT scan report/results: report reviewed and image reviewed CT scan - pelvis: report reviewed and image reviewed Additional studies: Date of Service: 06/20/25 CLINICAL HISTORY: left renal colic CT abdomen and pelvis without contrast Comparison: None provided Findings: No consolidation or effusion. Several tiny nonobstructing calculi are seen in the mid to lower poles of both kidneys. There is mild left hydroureteronephrosis with mild perinephric and periureteral inflammatory changes. The gallbladder in the rest of the solid organs are unremarkable. No bowel obstruction, pneumoperitoneum, or pneumatosis. Pelvic contents unremarkable. Normal appendix. No acute fracture. A 3.4 mm calculus is seen at the left ureterovesicular junction. IMPRESSION: Nephrolithiasis with left-sided obstructive uropathy associated with a 3.4 mm obstructing calculus at the left ureterovesicular junction. Assessment and Plan (1) Ureterolithiasis: Status: Acute (2) Left flank pain: Status: Acute (3) Bilateral kidney stones: Status: Acute Plan Plan for Cystoscopy, left ureteroscopy, possible laser lithotripsy, possible ureteral stent. Addendum: Patient passed stone in the ED and will be discharged. He has bilateral renal stones and will fu with Urology outpatient Procedures Date of Service Date of Service: 06/20/25
--- NOTE | 2025-06-20 12:43 | PC.NURSE ---
Pt urinated stone, placed in specimen cup @ bedside. Dr. Rogel aware, awaiting further orders. Pt resting comfortably in bed, 0/10 pain, denies nausea.
--- NOTE | 2025-06-20 12:47 | PC.NURSE ---
OR made aware of pt dispo status change. Awaiting d/c orders from .
== END 2025-06-20 13:45 | disposition home or self-care (01) ==
LOC: HO.ED 10:56 → HO.SSS 12:53 → HO.ED 13:27
PROVIDERS: Emergency Medicine; Emergency Provider Emergency Medicine
DX: N20.1 Calculus of ureter (principal); Z87.442 Personal history of urinary calculi
CPT/HCPCS: 36415; 74176; 80053; 81001; 81003; 85025; 96361; 96365; 96375; 96376; 99285; J0131; J1171; J1885; J2270; J2405; J3360

== ENCOUNTER → 2025-06-20 05:13 | Outpatient (BNV) | payer BC, SELFPAY | PROVIDERS: Emergency Provider Emergency Medicine; Visit Provider Radiology Diagnostic Radiology | DX: N20.2 Calculus of kidney with calculus of ureter (principal) | CPT/HCPCS: 74176 ==

== ENCOUNTER → 2025-06-20 05:46 | Outpatient (BNV) | payer BC, SELFPAY | PROVIDERS: Emergency Provider Emergency Medicine; Visit Provider Urology | DX: N20.1 Calculus of ureter (principal); R10.A2 Flank pain, left side; N20.0 Calculus of kidney | CPT/HCPCS: 99283 ==

== ENCOUNTER 2025-06-30 09:53 | Outpatient (AMB) | payer BC, SELFPAY ==
--- NOTE | 2025-06-30 09:58 | A.OFFPC_ITS ---
Vital Signs 06/30/25 10:03 Height 5 ft 5 in Weight 201 lb BMI 33.4 BP 110/82 Blood Pressure Location Lt brachial Position Sitting Pulse 93 Pulse Source Pulse Oximeter Pulse Oximetry (%) 94 Oxygen Delivery Method Room Air Intake Visit Reasons: [facility] [place] 06/20 Kidney stones Microbiology Lab Manager Required: Yes Accompanied by: Self / Same As Patient Allergies No Known Allergies Allergy (Verified 06/30/25 10:03) Tobacco use date assessed: 06/30/25 Dental Screening Dental Screen Date: 06/30/25 Did you have a dental visit in the last 12 months?: Yes Did you have a dental problem in the last 6 months where you did not have access to dental care?: No Was dental information given to patient?: Patient has dentist HPI HPI Comments History of Present Illness Details 50 y/o Male Patient who presents to the clinic today for EDF. He was admitted at [facility] [place] on 06/20/25 for an evaluation and treatment of left Renal Colic. CT Scan Kidney showed B/L Kidney Calculi. He was treated with IV Pain medications and discharged home to F/U with Urology outpatient. He has an appointment on 08/18/25 with [facility] [place] Urology. Reports pain left Kidney - he has been taking OTC NSAIDs with some relief. [facility] Medical History (Updated 06/30/25 @ 10:25 by Carli Ayala NP) Renal calculus, left Hypertriglyceridemia Migraine GERD (gastroesophageal reflux disease) Surgical History History of appendectomy History of repair of anterior cruciate ligament of right knee Family History Mother Hypertension Heart problem Father No problems noted. 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 - [employer] Current occupational exposures/hazards: No Cognitive needs: No Hearing needs: No Vision needs: No Questionnaire Thrive Questionnaire Date Thrive assessed: 02/28/25 What is your living situation today?: I have a steady place to live Within the past 12 months, did the food you bought not last and you didn't have the money to get more?: I choose not to answer this question Within the past 12 months, did you worry whether your food would run out before you got money to buy more?: Never true Do you have trouble paying for medicines?: No Do you have trouble getting transportation to medical appointments?: No Do you have trouble paying your heating and electricity bill?: No Do you have trouble taking care of your child, family member or friend?: No Do you have trouble with day-to-day activities such as bathing, preparing meals, shopping, managing finances, etc.?: No Are you currently unemployed and looking for a job?: No Are you interested in more education?: Yes Please select the resources that you would like help with: None Currently or been in a relationship where the following occur: No concerns reported THRIVE Score: 0 AUDIT C Alcohol Use Questionnaire (AUDIT-C) 1. How often do you have a drink containing alcohol?: Monthly or less 2. How many drinks containing alcohol do you have on a typical day when you are drinking?: 1 or 2 3. How often do you have six or more drinks on one occasion?: Never Total Score: 1 PADILLA-7 AMB Questionnaire PADILLA-7 Date PADILLA - 7 assessed: 02/28/25 Feeling nervous, anxious, or on edge: 0 = Not at all Not being able to stop or control worryin = Not at all Worrying too much about different things: 0 = Not at all Trouble relaxin = Not at all Being so restless that it is hard to sit still: 0 = Not at all Becoming easily annoyed or irritable: 0 = Not at all Feeling afraid as if something awful might happen: 0 = Not at all Total PADILLA-7 score (0-4 normal; 5-9 mild; 10-14 moderate; 15-21 severe): 0 Source: Developed by Drs. Don Wing, Alethea Joseph, Willy Otto and colleagues, with an educational claude from [employer]. Review of Systems Const All systems reviewed & are unremarkable except as noted in HPI and below Physical exam (Primary Care) Vital Signs: Last Vital Signs Pulse 93 10/17/25 10:03 BP 110/82 06/30/25 10:03 Pulse Ox 94 06/30/25 10:03 Oxygen Delivery Method Room Air 06/30/25 10:03 BMI result Body Mass Index 33.4 Tobacco/Smoking Status: Tobacco use Status Tobacco use date assessed 06/30/25 06/30/25 10:04 Patient Tobacco Use Status Never used Tobacco 06/30/25 09:59 Tobacco use type Cigarette 06/30/25 09:59 e-Cigarette/Vaping Use Never Used 06/30/25 09:59 Thrive Assessment: Date of Thrive Assessment Date Thrive assessed 02/28/25 06/30/25 09:59 Currently or been in a relationship where the following occur: No concerns reported Const General: no acute distress Nutritional Appearance: well nourished Orientation/consciousness: patient oriented x3 Resp Effort & Inspection: normal respiratory effort Cardio Rhythm: regular rhythm General: Yes no CVA tenderness Back/Spine/Pelvis Back: no CVA tenderness Neuro General: patient oriented x3, gait normal and moves all extremities Psych Speech and movement: Normal speech and movement present Coding Level of Care Code Est Pt Level 4 (74909) Diagnoses Renal calculus, left N20.0 Time Spent (min) 20 Assessment & Plan Assessment & Plan (1) Renal calculus, left: Code(s): N20.0 - Calculus of kidney Category: Medical Plan: NSAIDs for pain relief F/U with Urology as scheduled on 08/18/25.
[2025-06-30 10:03] VITALS: BP 110/82; PULSE 93; O2SAT 94; BMI 33.4
--- OUTSIDE RECORDS SUMMARY | 2025-06-30 11:32 | XMS_ITS | Patient Health Record ---
Demographics Address [address] [place] [address] Mobile Email Address Preferred Language es Marital Status Sabianism Affiliation Unknown Race Unknown Additional Race(s) Other Race Ethnic Group or Author Organization [facility] Reynaldo barrios [place] Address [address] [place] [address] Care Team Providers Care Cigar Binder Name Role Phone Fadi Ogden Unavailable [phone] Allergies No Known Allergies Reason For Referral [...] Status Risk Notes Problem Plantar fascial fibromatosis (57501913) Plantar fascial fibromatosis (M72.2) Active confirmed Acute problem, Complicated w/ Multiple Tx Options(4) Plan Of Treatment Pending Test Test Name Order Date X ray : Foot, left 3V 09/22/2022 [id number] TENDON SHEATH/LIGAMENT 0 04/25/2024 Insurance Providers Payer Name Payer Address Payer Phone Subscriber Number Group Number Insured Name Patient Relationship to Insured Coverage Start Date Coverage End Date [employer] Others [address] [place] [address] [phone] [id number] Scar Vogt Self - patient is the insured Medical (General) History Surgical History Surgery Date(Month/Year) knee surgery, right 11/12/20
== END 2025-06-30 10:22 | disposition home or self-care (01) ==
LOC: HO.HMCH 09:54
PROVIDERS: PCP Physician Assistant; Visit Provider Nurse Practitioner Family
DX: N20.0 Calculus of kidney (principal)

== ENCOUNTER 2025-08-18 13:42 | Outpatient (AMB) | payer BC, SELFPAY ==
--- NOTE | 2025-08-18 13:45 | MHC.OFFVIS ---
Intake Visit Reasons: kidney stones/Hx of varicocele(set) Intake Note: Reason for Visit: New patient Kidney Stones/Hx of Varicocele Urology Meds: None Blood Thinners: None Antibiotic Allergy: None Labs: BUN- 20 Creatinine- 1.20 (06/20/2025) PSA 0.61 (08/25/24) Imaging: Abd/Pel CT 06/20/2025 Last PVR: None Family History: Prostate Cancer? no Bladder Cancer? no Kidney Cancer? No Previous Urology? Health Safety Instructor Required: Yes Health Safety Instructor Language: Complaint Analyst Services: Health Safety Instructor Present Accompanied by: Self / Same As Patient Allergies No Known Allergies Allergy (Verified 08/18/25 13:51) HPI Comments Details: Scar is a pleasant Estonian-speaking male. He is seen for the following urologic conditions - nephrolithiasis - Prior history varicocele Telephone translation provided by qualified medical records technician Printed copy of relevant CT scan images provided Encouraged 80-90 oz daily water Add lemon Recommend true lemon Prescriptions for vitamin B6 and allopurinol provided Nephrolithiasis Reason presentation through hospital Distal left ureteric stone Imaging - 07/08 CT 3.4 mm distal left stone with proximal hydro nephrosis. Small stones left side [facility] Medical History (Updated 06/30/25 @ 10:25 by Carli Ayala NP) Renal calculus, left Hypertriglyceridemia Migraine GERD (gastroesophageal reflux disease) Surgical History History of appendectomy History of repair of anterior cruciate ligament of right knee Family History Mother Hypertension Heart problem Father No problems noted. 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 - [employer] Current occupational exposures/hazards: No Cognitive needs: No Hearing needs: No Vision needs: No Review of Systems Const Denies chills and Denies fever(s) Card Reports no additional complaints and Denies syncope Resp Denies cough GI Denies abdominal pain and Denies heartburn Reports as per HPI and Denies change in libido Neuro Denies syncope Psych Denies change in libido Endo Denies change in libido Physical Exam Const General: cooperative, healthy appearing, comfortable and no acute distress Orientation/consciousness: patient oriented x3 HEENT Face and sinus: Yes normal facial exam Mouth: moist mucous membranes Neck Neck: Yes normal visual inspection, Yes full ROM and Yes trachea midline Chest Chest palpation & inspection: normal inspection of the chest Resp Effort & Inspection: normal respiratory effort, able to speak in complete sentences and no respiratory distress GI Inspection: Yes normal to inspection Back/Spine/Pelvis Cervical Spine: normal cervical lordosis Thoracic/Lumbar Spine: thoracic and lumbar spine normal to inspection Skin General skin exam: no rashes or lesions noted Neuro General: patient oriented x3, gait normal, tone normal and moves all extremities Extrem General: Yes normal to inspection and Yes capillary refill normal Assessment & Plan Assessment & Plan (1) Renal calculus, left: Code(s): N20.0 - Calculus of kidney Category: Medical Plan Six-month follow-up renal ultrasound Orders: Orders US renal BI 6 Months N20.0 - Calculus of kidney Medications: New allopurinol 100 mg PO DAILY 90 tabs 1RF 90 days N20.0 - Calculus of kidney pyridoxine (vitamin B6) 50 mg PO DAILY 90 tabs 1RF 90 days N20.0 - Calculus of kidney Patient Instructions: This note is constructed using voice recognition software. While every effort has been made to ensure accuracy microsoft dynamics developer errors may have been included. Imaging studies, laboratory and physical exam results were discussed and reviewed in detail. No major barriers to patient understanding were identified. An opportunity to ask questions regarding the treatment plan was provided. All questions were answered. The patient expressed understanding and agreement with the above treatment plan. The patient is aware they should contact our office by phone for worsening of their current condition or the appearance of new urologic symptoms. Compliance is encouraged with any medications and followup testing that is ordered. It is a privilege to participate in the urologic care of your patient. If you have any questions or concerns regarding treatment for the above conditions, or other urologic issues, please do not hesitate to contact me. The office telephone contact is [phone]. Sincerely, Dr Ramakrishna Knight MD, [facility] - Urology Compassionate Specialist Care for the Genitourinary System Coding Level of Care Code New Pt Level 4 (90351) Diagnoses Renal calculus, left N20.0
== END 2025-08-18 14:08 | disposition home or self-care (01) ==
LOC: HO.HUSH 13:44
PROVIDERS: Visit Provider Urology
DX: N20.0 Calculus of kidney (principal)
CPT/HCPCS: 99204

== ENCOUNTER 2025-09-02 08:02 | Outpatient (REF) | payer BC, SELFPAY ==
--- OUTSIDE RECORDS SUMMARY | 2025-09-02 08:04 | XMS_ITS | Patient Health Record ---
Demographics Address [address] [place] [address] Mobile Email Address Preferred Language es Marital Status Christian Affiliation Unknown Race Unknown Additional Race(s) Other Race Ethnic Group or Author Organization [facility] Reynaldo barrios [place] Address [address] [place] [address] Care Team Providers Care Punching Machine Operator Name Role Phone Fadi Ogden Unavailable [phone] Allergies No Known Allergies Reason For Referral [...] Status Risk Notes Problem Plantar fascial fibromatosis ([id number]) Plantar fascial fibromatosis (M72.2) Active confirmed Acute problem, Complicated w/ Multiple Tx Options(4) Plan Of Treatment Pending Test Test Name Order Date X ray : Foot, left 3V 09/22/2022 [id number] TENDON SHEATH/LIGAMENT 0 04/25/2024 Insurance Providers Payer Name Payer Address Payer Phone Subscriber Number Group Number Insured Name Patient Relationship to Insured Coverage Start Date Coverage End Date [employer] Others [address] [place] [address] [phone] [id number] Scar Vogt Self - patient is the insured Medical (General) History Surgical History Surgery Date(Month/Year) knee surgery, right 11/12/20
[2025-09-02 09:00] LABS: Hematocrit 47.0 % (42.0-52.0); Hemoglobin 15.2 g/dl (14.0-18.0); Mean Corpuscular HGB Conc 32.3 g/dl (31.0-36.0); Mean Corpuscular Hemoglobin 27.5 pg (27.0-33.0); Mean Corpuscular Volume 85.1 fL (80.0-98.0); NRBC Abs Auto 0.000 X10*3/uL (0.0-0.012); NRBC Pct Auto 0.0 /100WBC (0.0-0.2); Platelet Count 285 X10*3/uL (160-400); Red Blood Count 5.52 X10*6/uL (4.60-5.80); White Blood Count 7.7 X10*3/uL (4.8-10.8)
[2025-09-02 09:45] LABS: Alanine Aminotransferase 41 U/L (0-40); Albumin Level 4.5 g/dL (3.5-5.0); Alkaline Phosphatase 109 U/L (39-117); Anion Gap 13 (12-20); Aspartate Amino Transferase 26 U/L (5-37); Blood Urea Nitrogen 16 mg/dL (9-16); Calcium 9.1 mg/dL (8.4-10.2); Carbon Dioxide 27 mmol/L (22-29); Chloride 108 mmol/L (96-108); Cholesterol 176 mg/dL (<200); Estimated Glomerular Filt Rate > 60; HDL Cholesterol 50 mg/dL (>40); Potassium 4.5 mmol/L (3.3-5.1); Sodium 143 mmol/L (135-145); Total Protein 7.3 g/dL (6.5-8.0); Triglycerides 126 mg/dL (<150)
== END 2025-09-02 08:03 | disposition home or self-care (01) ==
LOC: HO.LAB 08:02
PROVIDERS: PCP Physician Assistant; Visit Provider Physician Assistant
DX: Z12.5 Encounter for screening for malignant neoplasm of prostate (principal); R73.09 Other abnormal glucose; E78.1 Pure hyperglyceridemia
CPT/HCPCS: 36415; 80053; 80061; 83036; 84153; 85027

== ENCOUNTER 2025-09-05 15:50 | Outpatient (AMB) | payer BC, SELFPAY ==
--- NOTE | 2025-09-05 16:36 | A.OFFPC_ITS ---
Vital Signs 09/05/25 16:37 Height 5 ft 5 in Weight 203 lb BMI 33.8 BP 110/70 Blood Pressure Location Lt brachial Position Sitting Pulse 91 Pulse Source Pulse Oximeter Temp 97.3 F Temp Source Temporal Artery Scan Pulse Oximetry (%) 95 Oxygen Delivery Method Room Air Intake Visit Reasons: Annual Exam Intake Note: Patient is here today for a physical. 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 Name: [id number] Dehydration Unit Operator: Not Required per policy Accompanied by: Self / Same As Patient Allergies No Known Allergies Allergy (Verified 09/05/25 16:58) Medication List - Last Reconciled 09/05/25 by Franck Rossi PA-C allopurinol 100 mg PO DAILY 90 days cyclobenzaprine 5 mg PO BEDTIME PRN 30 days magnesium oxide 400 mg PO BEDTIME 30 days ondansetron 4 mg PO Q8H PRN pantoprazole 20 mg PO QAM 90 days propranolol ER 60 mg PO BEDTIME 30 days pyridoxine (vitamin B6) 50 mg PO DAILY 90 days riboflavin (vitamin B2) 400 mg PO DAILY 30 days rizatriptan take 1 tab at onset of headache; if no relief may repeat 1 tab after at least 2 hrs; max = 3 tabs/24 hr PO 21 days Tobacco use date assessed: 09/05/25 Dental Screening Dental Screen Date: 06/30/25 [facility] Annual Exam HPI Details Patient is a 50-year-old Polish-speaking male here today for an annual physical Patient has a past medical history significant for migraine disorder, hyperlipidemia, ---Concern> continues with left testicul ar pain--> A scrotal ultrasound performed in the summer revealed a left-sided varicocele and a right epididymal cyst. The patient reports the pain is frequent but not intense, though it becomes severe enough during ejaculation to cause him to stop sexual activity. He wears supportive cotton underwear. The patient is under the care of a urologist for a left kidney stone, which was identified on a CT scan in June. He reports he passed one stone and is on treatment for another. His urologist informed him that the testicular pain is unrelated to the kidney stone and advised him to follow up with his primary physician .. Migraines: Patient continues with the p.r.n. use of rizatriptan with good effect. He has been having much less frequent severe migraines. Has followed up with Neurology and was started on muscle relaxer for his jaw and head pain. He reports the medications have been very helpful. .. Impaired glucose metabolism: Most recent A1c acceptable at 5.6 .. Hypertriglyceridemia: Most recent fasting lipid panel showing improved triglycerides. Has been working on lifestyle modifications. Unfortunately has not been able to be more physically active due to his continued right heel pain. .. Plantar fasciitis : He has gotten a shot in his plantar region which has resolved his chronic plantar pain. Colon cancer screening: colonoscopy done in 2023, sessile polyp found repeat 7 years Vaccines: Up-to-date with COVID vaccine, received a Tdap in 2018,got flu vaccine at pharmacy Laboratory Tests 08/25/24 02/28/25 09/02/25 08:23 08:52 08:12 RBC 5.52 Creatinine 1.09 Fasting Glucose 105 H Hgb A1c (Clinic) 5.6 Hemoglobin A1c % 5.6 LDL Cholesterol, C alc 99 101 H Cholesterol 176 PFSH Medical History Renal calculus, left Hypertriglyceridemia Migraine GERD (gastroesophageal reflux disease) Surgical History History of appendectomy History of repair of anterior cruciate ligament of right knee Family History Mother Hypertension Heart problem Father No problems noted. 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 - [employer] Current occupational exposures/hazards: No Cognitive needs: No Hearing needs: No Vision needs: No Questionnaire Thrive Questionnaire Date Thrive assessed: 02/28/25 I am a: Parent/Caregiver What is your living situation today?: I have a steady place to live Within the past 12 months, did the food you bought not last and you didn't have the money to get more?: I choose not to answer this question Within the past 12 months, did you worry whether your food would run out before you got money to buy more?: Never true Do you have trouble paying for medicines?: No Do you have trouble getting transportation to medical appointments?: No Do you have trouble paying your heating and electricity bill?: No Do you have trouble taking care of your child, family member or friend?: No Do you have trouble with day-to-day activities such as bathing, preparing meals, shopping, managing finances, etc.?: No Are you currently unemployed and looking for a job?: No Are you interested in more education?: Yes Currently or been in a relationship where the following occur: No concerns reported THRIVE Score: 0 PADILLA-7 AMB Questionnaire PADILLA-7 Date PADILLA - 7 assessed: 02/28/25 Source: Developed by Drs. Don Wing, Alethea Joseph, Willy Otto and colleagues, with an educational claude from [employer]. Review of Systems Const Denies body aches, Denies chills, Denies excessive sweating, Denies fatigue, Denies fever(s) and Denies headache(s) Eyes Denies blurry vision ENT Denies dysphagia, Denies vertigo, Denies dizziness, Denies headache(s), Denies hearing loss and Denies tinnitus Card Denies chest pain, Denies chest pain with activity, Denies syncope, Denies irregular heart rhythm and Denies dyspnea Resp Denies chest congestion, Denies cough, Denies hemoptysis, Denies dyspnea and Denies wheezing GI Denies abdominal pain, Denies melena, Denies hematochezia, Denies coffee ground emesis, Denies dysphagia, Denies diarrhea, Denies nausea and Denies vomiting Denies difficulty urinating, Denies dysuria, Denies urinary frequency, Denies urinary hesitancy and Denies urinary urgency Musc Denies arthralgias, Denies limited range of motion, Denies muscle cramps and Denies muscle weakness Skin/Breast Denies rash and Denies skin ulcer Neuro Denies Abnormal speech present, Denies confusion, Denies vertigo, Denies dizziness, Denies syncope, Denies headache(s), Denies memory loss and Denies seizure-like activity Psych Denies anxiety, Denies confusion, Denies depression, Denies memory loss, Denies panic attacks and Denies paranoia Endo Denies excessive sweating, Denies fatigue, Denies flushing, Denies polydipsia and Denies polyuria Aller/Immun Denies wheezing Physical exam (Primary Care) Vital Signs: Last Vital Signs Temp 97.3 F 09/05/25 16:37 Pulse 91 09/05/25 16:37 BP 110/70 09/05/25 16:37 Pulse Ox 95 09/05/25 16:37 Oxygen Delivery Method Room Air 09/05/25 16:37 BMI result Body Mass Index 33.8 Tobacco/Smoking Status: Tobacco use Status Tobacco use date assessed 09/05/25 09/05/25 16:42 Patient Tobacco Use Status Never used Tobacco 09/05/25 17:03 Tobacco use type Cigarette 09/05/25 17:03 e-Cigarette/Vaping Use Never Used 09/05/25 17:03 Thrive Assessment: Date of Thrive Assessment Date Thrive assessed 02/28/25 09/05/25 16:42 Currently or been in a relationship where the following occur: No concerns reported Const General: cooperative, comfortable, no acute distress, alert and awake; No confusion Orientation/consciousness: oriented to person, oriented to place, patient oriented x3 and No confusion HENMT Head: Yes normocephalic Ears: external ears normal and TM's normal bilaterally Face and sinus: No sinus tenderness Mouth: Normal oral and palatal mucosa present and tongue normal Teeth and gingiva: dentition normal and gingiva normal Throat: Yes posterior oropharynx normal, Yes tonsils normal and Yes uvula midline Eyes Conjunctivae: conjunctivae normal Sclerae: sclerae normal Pupils: Equal, round and reactive pupils present EOM: EOMs intact bilaterally Direct Ophthalmoscopy: No no photophobia Neck Neck: Yes no lymphadenopathy, No tender and Yes no JVD Thyroid: Thyroid normal Carotids: no bruits Chest Chest palpation & inspection: no tenderness Resp Effort & Inspection: normal respiratory effort, no audible wheezes, not labored and no stridor Auscultation: no crackles, no rales, no rhonchi and no wheezes Cardio Jugular venous distension: no JVD Rate: regular rate, not bradycardic and not tachycardic Rhythm: regular rhythm Bruits: no carotid bruits Peripheral pulses: Peripheral pulses 2+ throughout GI Inspection: Yes normal to inspection, No abdominal wall ecchymosis and No vis ible herniation Palpation (GI): Soft to palpation, nontender, no guarding, not rigid and No hepatosplenomegaly present Auscultation: normoactive bowel sounds General: Yes no CVA tenderness Back/Spine/Pelvis Back: no CVA tenderness and No back tenderness Cervical Spine: cervical ROM normal Thoracic/Lumbar Spine: thoracic and lumbar spine normal to inspection, straight leg raise negative bilaterally, No thoraco-lumbar ROM limited and No lumbar spinal tenderness Skin Lesions: no lesions Rashes: no rashes Wounds: no wounds Neuro General: oriented to person, oriented to place, patient oriented x3, CN's II-XI intact bilaterally and No confusion Cranial nerves: Yes Equal, round and reactive pupils present and Yes Normal accommodation reflex present Cognition (Neuro): normal cognition Speech: No Abnormal speech present Gait exam (Neuro): Normal gait present Motor exam (neuro): 5/5 motor strength present throughout Extrem Right upper extremity: full ROM; no cyanosis Left upper extremity: full ROM; no cyanosis Right lower extremity: no edema Left lower extremity: no edema Psych Appearance: grossly normal Mental Status: mental status grossly normal Affect: normal affect Attitude: cooperative Thought process: Normal thought process present Coding Level of Care Code Est Pt Prev Care 40-64y(15496) Diagnoses Annual physical exam Z00.00 Impaired glucose metabolism R73.09 Hypertriglyceridemia E78.1 Left testicular pain N50.812 Assessment & Plan Assessment & Plan (1) Annual physical exam: Code(s): Z00.00 - Encounter for general adult medical examination without abnormal findings Category: Medical Plan: as per HPI (2) Impaired glucose metabolism: Code(s): R73.09 - Other abnormal glucose Category: Medical Plan: Has a history of elevated fasting blood sugars, recent fasting blood sugar improved at 105, A1c of 5.6. He has been trying to make lifestyle and dietary modifications.. . Will recheck fasting blood sugar in 6 months. (3) Hypertriglyceridemia: Code(s): E78.1 - Pure hyperglyceridemia Category: Medical Plan: Patient's most recent lipid panel showing excellent control of his total cholesterol and triglycerides. Will continue with lifestyle and dietary modifications. Goal triglycerides to remain below 150 (4) Left testicular pain: Code(s): N50.812 - Left testicular pain Category: Medical Plan: As per HPI patient has been experiencing intermittent left testing in her pain. Will send for scrotal ultrasound evaluate for varicocele or spermatocele that could be causing structural change and pain. Will also refer to urology in [place] for 2nd opinion on his left testicular pain. Orders: Orders Hemoglobin A1c 09/05/25 R73.09 - Other abnormal glucose Comprehensive [place]. Panel Fast 09/05/25 R73.09 - Other abnormal glucose Complete Blood Count no Diff 09/05/25 R73.09 - Other abnormal glucose Referrals Urology Referral N50.812 - Left testicular pain Medications: Changed From riboflavin (vitamin B2) 400 mg PO DAILY 30 days 30 tabs 6RF R73.09 - Other abnormal glucose To riboflavin (vitamin B2) 400 mg PO DAILY 90 tabs 6RF 90 days R73.09 - Other abnormal glucose From magnesium oxide may hold for loose stools 400 mg PO BEDTIME 30 days 30 tabs 6RF R73.09 - Other abnormal glucose To magnesium oxide may hold for loose stools 400 mg PO BEDTIME 90 tabs 3RF 90 days R73.09 - Other abnormal glucose Refilled pyridoxine (vitamin B6) 50 mg PO DAILY 90 tabs 1RF 90 days N20.0 - Calculus of kidney
[2025-09-05 16:37] VITALS: BP 110/70; PULSE 91; TEMP 36.3; O2SAT 95; BMI 33.8
--- OUTSIDE RECORDS SUMMARY | 2025-09-05 16:50 | XMS_ITS | Patient Health Record ---
Demographics Address [address] [place] [address] Mobile Email Address Preferred Language es Marital Status Orthodoxy Affiliation Unknown Race Unknown Additional Race(s) Other Race Ethnic Group or Author Organization [facility] Reynaldo barrios [place] Address [address] [place] [address] Care Team Providers Care Records Management Associate Name Role Phone Fadi Ogden Unavailable [phone] Allergies No Known Allergies Reason For Referral [...] Status Risk Notes Problem Plantar fascial fibromatosis (07978016) Plantar fascial fibromatosis (M72.2) Active confirmed Acute problem, Complicated w/ Multiple Tx Options(4) Plan Of Treatment Pending Test Test Name Order Date X ray : Foot, left 3V 09/22/2022 [id number] TENDON SHEATH/LIGAMENT 0 04/25/2024 Insurance Providers Payer Name Payer Address Payer Phone Subscriber Number Group Number Insured Name Patient Relationship to Insured Coverage Start Date Coverage End Date [employer] [address] [place] [address] [phone] [id number] Scar Vogt Self - patient is the insured Medical (General) History Surgical History Surgery Date(Month/Year) knee surgery, right 11/12/20
== END 2025-09-05 17:20 | disposition home or self-care (01) ==
LOC: HO.HMCH 15:50
PROVIDERS: PCP Physician Assistant; Visit Provider Physician Assistant
DX: Z00.00 Encounter for general adult medical examination without abnormal findings (principal); R73.09 Other abnormal glucose; E78.1 Pure hyperglyceridemia; N50.812 Left testicular pain